=== PATIENT | female | born 1955 | race Caucasian/White ===

== ENCOUNTER 2022-03-13 15:33 | Outpatient (CLI) | payer MEDICARE, SELFPAY ==
--- NOTE | 2022-03-13 15:45 | CRLHL7_ITS ---
For Patients: As a result of the Century Cures Act, medical imaging exams and procedure reports are released immediately into your electronic medical record. You may view this report before your referring provider. If you have questions, please contact your health care provider. BILATERAL MAMMOGRAM WITH COMPUTER-AIDED DETECTION AND TOMOSYNTHESIS TECHNIQUE: CC and MLO views were obtained. These mammographic images have been obtained using full-field digital technique. These mammographic images were interpreted with the benefit of computer-aided detection. Breast Tomosynthesis was used in this interpretation. COMPARISON FILM: 03/02/2021, 06/13/2018. FINDINGS: The breasts are heterogeneously dense, which may obscure small masses IMPRESSION: There is no radiographic evidence for malignancy. ASSESSMENT: BI-RADS Category 1: Negative RECOMMENDATION: Routine screening mammogram in 1 year. A lay language report of this examination will be provided to the patient. Jagjit Leon M.D. Diagnostic Radiologist [email or web address] JAMIE/[email or web address] adrian/Dictated by: Jagjit Leon MD @ 03/14/2022 9:01:00 AM (Electronically Signed)
== END 2022-03-13 15:34 | disposition home or self-care (01) ==
LOC: MAMMO 15:36
PROVIDERS: PCP Family Medicine; Visit Provider Family Medicine
DX: Z12.31 Encounter for screening mammogram for malignant neoplasm of breast (principal); R92.2 Inconclusive mammogram
CPT/HCPCS: 77063; 77067

== ENCOUNTER 2022-04-11 10:52 | Outpatient (CLI) | payer MEDICARE, SELFPAY ==
--- NOTE | 2022-04-11 11:00 | CRLHL7_ITS ---
For Patients: As a result of the Century Cures Act, medical imaging exams and procedure reports are released immediately into your electronic medical record. You may view this report before your referring provider. If you have questions, please contact your health care provider. Indication: LLQ palpable lump. hx left breast CA Technique: Grayscale and color Doppler ultrasound of the left lower quadrant abdominal wall performed. Comparison: None Findings: Targeted sonogram to the left lower quadrant abdominal wall performed. In this location there is a circumscribed area of hyperechoic/isoechoic echotexture measuring 1.2 x 0.7 x 1.1 cm. This is located just beneath the epidermis. No abnormal vascularity. No shadowing. Impression: Benign-appearing lesion within the subcutaneous fat of the left lower quadrant measuring 1.2 cm compatible with either lipoma or subcutaneous bruise. Dictated by Jagjit Leon MD @ 04/11/2022 11:46:07 AM (Electronically Signed)
== END 2022-04-11 10:53 | disposition home or self-care (01) ==
LOC: US 10:55
PROVIDERS: PCP Family Medicine; Visit Provider Internal Medicine Hematology & Oncology
DX: R19.04 Left lower quadrant abdominal swelling, mass and lump (principal); C50.912 Malignant neoplasm of unspecified site of left female breast
CPT/HCPCS: 76705

== ENCOUNTER 2022-04-25 10:03 | Outpatient (CLI) | payer MEDICARE, SELFPAY ==
--- NOTE | 2022-04-25 10:15 | CRLHL7_ITS ---
For Patients: As a result of the Century Cures Act, medical imaging exams and procedure reports are released immediately into your electronic medical record. You may view this report before your referring provider. If you have questions, please contact your health care provider. CLINICAL HISTORY: Benign endometrial hyperplasia TECHNIQUE: Real time, curiel scale images were acquired of the pelvis using a transabdominal and transvaginal approach. Color Doppler analysis was performed of the ovaries. FINDINGS: The uterus measures 7.4 x 5.4 x 7.7 centimeters. Endometrium measures 9 millimeters. Superior portion the endometrium appears heterogeneous in appearance. Myomatous uterus Larger fibroid is a right fundal fibroid measuring 5.3 x 4.4 x 5.2 centimeters. Left fundal fibroid measuring 3.1 by 2.2 x 2.7 centimeters apparent right lower uterine segment fibroid measuring 2.6 x 1.9 x 2.5 Centimeters Left ovary is unremarkable measuring 2.2 x 1.2 x 1.4 centimeters right ovary is unremarkable measuring 2.1 x 1.3 x 1.5 centimeters. IMPRESSION: 1. 9 millimeter endometrium. Superior aspect of the endometrium is slightly heterogeneous appearance patient did have endometrial biopsy. 2. Myomatous uterus. Dictated by Sylvie Hobbs MD @ 04/26/2022 6:03:05 AM (Electronically Signed)
== END 2022-04-25 10:04 | disposition home or self-care (01) ==
LOC: US 10:04
PROVIDERS: PCP Family Medicine; Visit Provider Obstetrics & Gynecology
DX: N85.01 Benign endometrial hyperplasia (principal); D25.9 Leiomyoma of uterus, unspecified
CPT/HCPCS: 76830; 76856

== ENCOUNTER 2022-05-01 09:46 | Outpatient (RCR) | payer MEDICARE, SELFPAY ==
--- OUTSIDE RECORDS SUMMARY | 2022-02-16 09:11 | XMS_ITS | Continuity of Care Document ---
:1955 Author Care Team Providers Name Role Phone MD Danyel Nick Attending Physician Unavailable MD Shelia Perez Primary Care Physician Allergies, Adverse Reactions, Alerts Allergen Type Severity Reaction Last Updated Verified Status No Known Drug Allergy Unknown September Yes Active Allergy 2021 JUNG Allergy Unknown RASH April 06, No Active SILVER 2020 Social History Smoking Status Status Start Date End Date Date of Observat ion Never smoked tobacco October 162021 (finding) 10:52am Observation Status Observation Response Date of Response Non-smoker February 23, 2021 1:38p m Does not drink alcohol February 23, 2021 1: 38pm Exercises regularly February 23, 2021 1:38p m , 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, 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, 2 kids, lives in [place] Additional Data Assigned Sex Female Problems Active Problems Medical Problem Onset Date Status lump 9 0 clock 2 3 cm left breast January, Active Post-menopausal bleeding Dec, 2020 Resolved Hx of nonmelanoma skin cancer 2005 Active Pelvic prolapse Active Hypothyroid Active Elevated blood pressure reading February, Resolved Breast cancer, left breast February, Active Encounter for screening for Active COVID-19 Hx of excision of epidermal Active inclusion cyst Hx of local excision of skin 2006 Active lesion History of lumpectomy of left April 18, 2021 Active breast H/O dilation and curettage April 06, 2021 Active Inactive/Resolved Problems Medical Problem Onset Date Status Hx excision of sessile serrated Resolved adenoma colon polyp Medications Medication Status Dose Units Route Directions Qty Days Start End Ins tructions Date Date Anastrozole Active 1 MG PO Daily 90 90 November (Arimidex) 1 2nd, Mg TAB 2020 2:58pm Calcium/Mikayla Active 1 TAB PO Daily 200 100 November min D 2nd, (Calcium 2020 Carbonate/Vi 2:59pm tamin D) 600 Mg/400 Unit TAB Ibuprofen Active 200-4 MG PO Every 6 100 00 Hours as needed Acetaminophe Discontin 1-2 TAB PO Every March Septem n/Hydrocodon ued Hours as e Bitart needed 2020 08, (Hydrocodone 9:09am 2020 -Acetaminoph 1:08pm en) 5 Mg/325 Mg TAB No Discontin Septembe Septem Medications ued r 2020, 1:08pm 2020 2:43pm Immunizations Immunization Event Date Not Given Dose Cloth Mercerizer Operator Lot Vac cine Reason Number Number Informatio n Statement (VIS) Deta il COVID-19 Pfizer December 202020 COVID-19 Pfizer January 102020 COVID-19 Pfizer June 282020 Tetanus/Diptheri April 20, a 2004 Tdap April 14 (adolescent/adul 2004 t) Advance Directives Advance Directive Response Recorded Date/Time Has patient completed a No October 16, 022 10:52am Health Care Directive? Insurance Providers Guarantor Olga Nelson Address [address] [place] [address] Contact Info. Home Phone: Payer Policy Id Coverage Id Subscriber's Subscriber Id Effective E xpiration Name Date Date Medicare [id number] Olga Nelson 11 J Encounters Encounter Location(s) Arrival/Admit Date Discharge/Depart Date Provider(s) Registered [place] January 24, 2022 [facility] 9:45am Idris NICOLAS Plan of Treatment Future Tests Future scheduled test information is unavailable Pending Tests Pending diagnostic test information is unavailable Future Visits Future appointment information is unavailable Referrals to Other Providers Referral information is unavailable Future Procedures Procedure Name Scheduled Date OTTONIEL Bilat Mammo Scrn Future Medications Future medication information is unavailable Patient Instructions Patient instructions are unavailable
--- OUTSIDE RECORDS SUMMARY | 2022-02-23 10:28 | XMS_ITS | Continuity of Care Document ---
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 Insurance Providers Guarantor Olga Nelson Address [address] [place] [address] Contact Info. Home Phone: Payer Policy Id Coverage Id Subscriber's Subscriber Id Effective E xpiration Name Date Date Medicare [id number] Olga Nelson 11 J Encounters Encounter Location(s) Arrival/Admit Date Discharge/Depart Date Provider(s) Registered [place] January 24, 2022 [facility] 9:45am Idris NICOLAS Plan of Treatment [...]
== END 2022-05-01 11:39 | disposition home or self-care (01) ==
PROVIDERS: PCP Family Medicine; Visit Provider Surgery
DX: I89.0 Lymphedema, not elsewhere classified (principal); Z51.89 Encounter for other specified aftercare
CPT/HCPCS: 97535

== ENCOUNTER 2022-05-29 11:38 | Outpatient (CLI) | payer MEDICARE, SELFPAY ==
--- OUTSIDE RECORDS SUMMARY | 2022-05-29 11:42 | XMS_ITS ---
:1955 Author Organization [facility] Address [address] [place] [address] Care Team Providers Name Role Phone Unavailable Primary Care Provider Unavailable Active Problems Problem Noted Date Malignant Neoplasm Of Breast Upper Inner Quadrant Fema le Left 05/18/2021 Cancer Staging: Pathologic stage from : Stage IIA (pT2, pN1mi(sn), cM0, G3, ER+, GA+, HER2-, Oncotype DX score: 8) - Unsigned Current Oncology Plans No current plan information found. Past Plans No past plan information found. Radiation Treatments Plan Last Treated Elapsed Days Fractions Prescribed Prescribed Total On Treated Fraction Dose Dose [id number] 06/22/2021 24 4 of 4 250 cGy 1,000 cGy [id number] 06/16/2021 18 15 of 15 267 cGy 4,005 cGy Reference Point Last Treated On Elapsed Days Session Dose Total Dos e [id number] 06/22/2021 24 250 cGy 5,005 cGy
--- OUTSIDE RECORDS SUMMARY | 2022-05-29 11:42 | XMS_ITS | Encounter Summary ---
:1955 Author Organization [facility] Address [address] [place] [address] Care Team Providers Name Role Phone Unavailable Primary Care Provider Unavailable Encounter Details Date Type Department Care Team Description 06/22/2021 Documentation Department of Radiation Ary Romero I., Oncology in [place] [address] [address] [facility] [address] [place] [phone] (Wo rk) Social History Tobacco Use Types Packs/Day Years Used Date Smoking Tobacco: Never Assessed Sex Assigned at Date Recorded Not on file documented as of this encounter Miscellaneous Notes Radiation Completion Notes - Park Kilpatrick R.N. - 06/22/2021 11:59 PM CDT DIAGNOSIS: 1. Malignant Neoplasm Of Breast Upper Inner Quadrant Female Left (HCC) - stage IIA left breast cancer. She is currently undergoing whole breast radiotherapy that will be followed by a boost to the lumpectomy cavity. ?? Attending Physician: Ary Romero M.D. Treatment Intent: Curative Concomitant Therapy: None Single Plan Treatment Course: 1x LT BREAST Plan ID Fractions Dose / Fraction (cGy) Dose Treated (cGy) Dose Planned (cGy) First Treatment Last Treatment Elapsed Days [id number] 267 4005 4005 05/29/2021 06/16/2021 18 [id number] 250 1000 1000 06/19/2021 06/22/2021 3 Treatment Site Summary 5005 5005 05/29/2021 06/22/2021 24 Course Summary 05/29/2021 06/22/2021 24 Radiation Modality: Photons CLINICAL SUMMARY Lane Nelson completed radiation treatment as planned without interruptions. The course of treatment was tolerated well. The patient experienced toxicities of grade 2 radiation dermatitis for which she will begin dressing changes during radiation treatment. TREATMENT RESPONSE: Response to treatment will be determined by post-treatment imaging and/or laboratory work. RECOMMENDED FOLLOW UP: Primary Medical Oncologist. She has a follow-up visit with Dr. Membreno on June 27, 2021. We will not schedule for their formal follow-up in Radiation Oncology Clinic Signed by: Park Kilpatrick R.N., 06/27/2021 10:06 AM CDT [facility] [address] [place] [address] documented in this encounter Plan of Treatment Not on filedocumented as of this encounter Visit Diagnoses Not on filedocumented in this encounter
--- OUTSIDE RECORDS SUMMARY | 2022-05-29 11:43 | XMS_ITS | Encounter Summary ---
:1955 Author Organization [facility] Address [address] [place] [address] Care Team Providers Name Role Phone Unavailable Primary Care Provider Unavailable Encounter Details Date Type Department Care Team Description 06/14/2021 Hospital Encounter Department of Radiation Doc Romero I., Oncology in [place] [address] [facility] [address] [place] [phone] Social History Tobacco Use Types Packs/Day Years Used Date Smoking Tobacco: Never Assessed Sex Assigned at Date Recorded Not on file documented as of this encounter Plan of Treatment Not on filedocumented as of this encounter Visit Diagnoses Not on filedocumented in this encounter
--- OUTSIDE RECORDS SUMMARY | 2022-05-29 11:43 | XMS_ITS | Encounter Summary ---
:1955 Author Organization [facility] Address [address] [place] [address] Care Team Providers Name Role Phone Unavailable Primary Care Provider Unavailable Encounter Details Date Type Department Care Team Description 05/30/2021 Hospital Encounter Department of Radiation Doc Romero I., Oncology in [place] [address] [facility] [address] [place] [address] [phone] Social History Tobacco Use Types Packs/Day Years Used Date Smoking Tobacco: Never Assessed Sex Assigned at Date Recorded Not on file documented as of this encounter Plan of Treatment Not on filedocumented as of this encounter Visit Diagnoses Not on filedocumented in this encounter
--- OUTSIDE RECORDS SUMMARY | 2022-05-29 11:43 | XMS_ITS | Clinical Summary ---
:1955 Author Organization [facility] [place] [address] Care Team Providers Name Role Phone Blair Zimmer Primary Care Provider Unavailable Allergies Not on File Medications Not on file Active Problems Not on file Encounters Date Type Specialty Care Team Description 04/25/2022 Lab Requisition Jannie Estrella MD from Last 3 Months Social History Tobacco Use Types Packs/Day Years Used Date Never Assessed Sex Assigned at Date Recorded Not on file Plan of Treatment Health Maintenance Due Date Last Done Comments Tdap 1964 Depression screening for age 12+ 1965 BMI (ht and wt on same day) for age 18+ 1971 Hepatitis C screening for age 18-79 1971 Tetanus booster 1973 Colonoscopy through age 75 1998 Lipids for age 45-75 1998 Mammogram for age 45-75 1998 Zoster (shingles) series for age 50+ (1 of 2003 2) DEXA/DXA scan for age 65+ 2018 Pneumococcal series for age 65+ (1 - PCV) 2018 COVID-19 vaccine series (3 - Booster for 03/07/2021 021, 12/20/2020 Pfizer series) Influenza for age 65+ 04/26/2022 Procedures Procedure Name Priority Date/Time Associated Diagnosis Comme nts LAB TRACKING EVENT Routine 04/25/2022 9:45 AM CDT PATH TISSUE EXAM Routine 04/25/2022 9:45 AM Resul ts for this CDT procedure are i n the results section. from Last 3 Months Results LAB TRACKING EVENT (04/25/2022 9:45 AM CDT) Specimen Anatomical Collection Method Collection Time Receive d Time (Source) Location / / Volume Laterality Other (Other) Client Collect / 04/25/2022 9:45 AM 03/28 8:22 Unknown CDT PM CDT Jannie Estrella MD LAB BILL ONLY Performing Organization Address City/State/ZIP Code Phon e Number [facility] [address] [place] [address] LABORATORY-CENTRAL 2000 LABORATORY PATH TISSUE EXAM (04/25/2022 9:45 AM CDT) Component Value Ref Test Analysis Performed At [facility] gist Range Method Time Signature Case Report Pathology Report ?Case: [id number] ? 04/26/2022 [facility] Authorizing Provider: ??Jannie Estrella MD ?? Collected: ? 04/25/2022 0945 ? 10:02 AM LABORAT ORY-CE Ordering Location: ? [facility] ?Received: ?04/25/20222046 ? CDT [facility] Pathologist: ? Shaunna Altman MD ? LABORATORY Specimen: ?Endometrial B iopsy ? Final A) ENDOMETRIUM, BIOPSY: 04/26/2022 [employer] Electronically Diagnosis 1. Atrophic endometrium 10:02 AM LABORA TORY-CE signed by Anupama, 2. Negative for hyperplasia, atypia, and malignancy in this sample CDT [facility] Shaunna Nance LABORATORY on 04/26 at 10:01 A M Comment If the 04/26/2022 [facility] clinical 10:02 AM LABORATORY-CE impression CDT [facility] does not LABORATORY correlate with the histologic finding of endometrial atrophy, further endometrial tissue sampling is recommended as clinically indicated. Clinical Complex 04/26/2022 [facility] Information hyperplasia 10:02 AM LABORATORY-CE without atypia CDT [facility] and fragments LABORATORY of endometrial polyp ([id number]; 04/06/21). Gross A) Received in formalin, lab eled with the patient's name and endometrial biopsy, is a 0.7 x 0.5 cm aggregate of blood tinged mucous. The specimen is entirely submitted in 1 cassette. 04/26/2022 [facility] Description 10:02 AM LABORATORY-CE SSS 04/25/2022 CDT [facility] LABORATORY Microscopic The final 04/26/2022 [employer] diagnosis is 10:02 AM LABORATORY-CE based on CDT [facility] microscopic LABORATORY examination of appropriate sections of all specimens. Additional 04/26/2022 [facility] Information Interpreted at [facility], Central Laboratory - [address], [place] [address] 10:02 AM LABORATORY-CE CDT [facility] LABORATORY Specimen Anatomical Collection Method Collection Time Receive d Time (Source) Location / / Volume Laterality Other 04/25/2022 9:45 AM 2 8:47 (Endometrial CDT PM CDT Biopsy) Jannie Estrella MD PATHOLOGY/CYTOLOGY Performing Organization Address City/State/ZIP Code Phon e Number [facility] [address] [place] [address] LABORATORY-CENTRAL 2000 LABORATORY from Last 3 Months Insurance Payer Benefit Plan / Subscriber ID Effective Dates Phone Addre ss Type Group MEDICARE PART A MEDICARE PART A [id number] 2018-Present ATTN: CLAIMS - HB USE ONLY HB ONLY [address] [place] [address] MEDICARE PART B MEDICARE PART B [id number] 2018-Present ATTN: CLAIMS - HB USE ONLY HB ONLY [address] [place] [address] [phone] [address] [facility] y 3 (Home) [facility] [place] [id number] Care Teams Reinforcing Metal Worker Relationship Specialty Start Date End Date Blair Zimmer PCP - General 03/17/21
--- OUTSIDE RECORDS SUMMARY | 2022-05-29 11:43 | XMS_ITS | Encounter Summary ---
:1955 Author Organization [facility] Address [address] [place] [address] Care Team Providers Name Role Phone Yashira Gonzalez APRN, CNP Primary Care Provider Encounter Details Date Type Department Care Team Description 06/13/2018 Lab Visit [facility] Lipid screening; [address] Screening for endocrine, nut ritional, metabolic and immunity disorder; [place] [address] Screening for deficiency ane joyce [phone] Social History Tobacco Use Types Packs/Day Years Used Date Smoking Tobacco: Never Smokeless Tobacco: Never Alcohol Use Standard Drinks/Week Comments No 0 (1 standard drink = 0.6 oz pure alcoho l) Sex Assigned at Date Recorded Not on file documented as of this encounter Progress Notes Yashira Gonzalez - 06/13/2018 5:11 PM CDT See telephone encounter. JAMILAH Altman CNP 06/13/2018 5:11 PM Yashira Gonzalez - 06/13/2018 4:38 PM CDT See telephone encounter. JAMILAH Altman CNP 06/13/2018 4:37 PM documented in this encounter Plan of Treatment Not on filedocumented as of this encounter Procedures Procedure Name Priority Date/Time Associated Diagnosis Comme nts LIPID PANEL AND Routine 06/13/2018 11:09 AM Lipid screening Re sults for this DIRECT LDL(IF CDT procedure are in NEEDED) the results section. BASIC METABOLIC Routine 06/13/2018 11:09 AM Screening for Resu lts for this PANEL CDT endocrine, procedure are i n nutritional, the results metabolic and section. immunity disorder COMPLETE BLOOD Routine 06/13/2018 11:09 AM Screening for Resul ts for this COUNT-NO DIFF CDT deficiency anemia procedure are in the results section. FREE T4 Routine 06/13/2018 11:09 AM Results for this CDT procedure are i n the results section. TSH, SENSITIVE Routine 06/13/2018 11:09 AM Screening for Resul ts for this (WITH REFLEX) CDT endocrine, procedure are in nutritional, the results metabolic and section. immunity disorder documented in this encounter Results Free T4 (06/13/2018 11:09 AM CDT) P athologist Signature T4, Free 0.9 0.7 - 1.5 [facility] ng/dl Specimen Anatomical Collection Method Collection Time Receive d Time (Source) Location / / Volume Laterality 06/13/2018 11:09 06/13/2018 AM CDT 11:20 AM CDT Narrative [facility] - 06/13/2018 5:08 PM C DT Performed at [facility], [address] [place] [address] ??[phone] Yashira Gonzalez APRN, CNP LAB_1 Performing Organization Address [facility]/ZIP Code Phon e Number [facility] [phone] (ABNORMAL) TSH, SENSITIVE with FT4, FT3 (if needed) (06/13/2018 11:09 AM CDT) Patholo gist Method Time Signature TSH, with 0.03 (L) 0.30 - [facility] Reflex 4.50 [facility] uIU/ml Specimen Anatomical Collection Method Collection Time Receive d Time (Source) Location / / Volume Laterality 06/13/2018 11:09 06/13/2018 AM CDT 11:20 AM CDT Narrative [facility] - 06/13/2018 4:22 PM C DT Performed at [facility], [address] [place] [address] ??[phone] Yashira Gonzalez APRN, CNP LAB_1 Performing Organization Address City/[facility]/ZIP [facility] Phon e Number [facility] [phone] (ABNORMAL) Complete Blood Count-No Diff (06/13/2018 11:09 AM CDT) P athologist Signature WBC 5.9 4.0 - 11.0 [facility] k/ul [facility] RBC 5.21 (H) 4.0 - 5.2 [facility] M/ul [facility] Hemoglobin 15.2 12.0 - [facility] 16.0 g/dl [facility] HCT 44.8 36.0 - [facility] 46.0 % [facility] MCV 86.0 80 - 100 [facility] fl [facility] MCH 29.2 26 - 34 pg [facility] MCHC 33.9 32 - 36 [facility] g/dl [facility] RDW 12.5 11.5 - [facility] 14.5 % [facility] Platelets 221 150 - 450 [facility] k/ul [facility] Specimen Anatomical Collection Method Collection Time Receive d Time (Source) Location / / Volume Laterality 06/13/2018 11:09 06/13/2018 AM CDT 11:20 AM CDT Narrative [facility] - 06/13/2018 1:16 PM C DT Performed at [facility], [address] [place] [address] ??[phone] Yashira Gonzalez APRN, CNP LAB_1 Performing Organization Address City/State/ZIP Code Phon e Number [facility] [phone] Basic Metabolic Panel (06/13/2018 11:09 AM CDT) Analysis Performed At Patho logist Time Signature Sodium 144 136 - 145 [facility] mmol/L [facility] Potassium 3.6 3.5 - 5.1 [facility] mmol/L [facility] Chloride 108 98 - 109 [facility] mmol/L [facility] CO2 25 20 - 29 [facility] mmol/L [facility] Anion Gap 11 7 - 16 [facility] (calc.) mmol/L [facility] Glucose 91 70 - 180 [facility] mg/dl [facility] Calcium 9.6 8.4 - 10.4 [facility] mg/dl [facility] BUN 11 7 - 26 [facility] mg/dl [facility] Creatinine 0.69 0.55 - [facility] 1.02 mg/dl [facility] GFR, Estimated >60 >60 [facility] ml/min/1.7 [facility] 3m2 GFR, Est., If >60 >60 [facility] Black ml/min/1.7 [facility] 3m2 Specimen Anatomical Collection Method Collection Time Receive d Time (Source) Location / / Volume Laterality 06/13/2018 11:09 06/13/2018 AM CDT 11:20 AM CDT Narrative [facility] - 06/13/2018 4:14 PM C DT Performed at [facility], [address] [place] [address] ??[phone] Yashira Gonzalez APRN, CNP LAB_1 Performing Organization Address [facility] Phon e Number [facility] [phone] Lipid Panel and Direct LDL(If Needed) (06/13/2018 11:09 AM CDT) [facility] gist Method Time Signature Hours Fasting 12 hours [facility] Cholesterol 192 0 - 199 [facility] mg/dl [facility] Triglyceride 137 0 - 149 [facility] mg/dl [facility] HDL 45 >40 mg/dl [facility] LDL, Calc. 120 0 - 129 [facility] mg/dl [facility] Non HDL Chol, 147 0 - 159 [facility] Calc mg/dl [facility] Specimen Anatomical Collection Method Collection Time Receive d Time (Source) Location / / Volume Laterality 06/13/2018 11:09 06/13/2018 AM CDT 11:20 AM CDT Narrative [facility] - 06/13/2018 4:14 PM C DT Performed at [facility], [address] [place] [address] ??[phone] Yashira Gonzalez APRN, CNP LAB_1 Performing Organization Address [facility] Phon e Number [facility] [phone] documented in this encounter Visit Diagnoses Diagnosis Lipid screening Screening for lipoid disorders Screening for endocrine, nutritional, me tabolic and immunity disorder Screening for other and unspecified endo crine, nutritional, metabolic, and immunity disorders Screening for deficiency anemia Screening for other and unspecified defi ciency anemia documented in this encounter Care Teams Barge Pilot Relationship Specialty Start Date End Date Yashira Gonzalez APRN, CNP PCP - General Nurse Practitioner 05/30/[address] [place] [address] documented as of this encounter
--- OUTSIDE RECORDS SUMMARY | 2022-05-29 11:43 | XMS_ITS | Encounter Summary ---
:1955 Author Organization [facility] Address [address] [place] [address] Care Team Providers Name Role Phone Yashira Gonzalez APRN, NISHANT Primary Care Provider [phone] Reason for Visit Reason Comments Medicare Encounter Details Date Type Department Care Team Description 06/17/2018 Telephone [facility] bradley Yashira Gonzalez, ODESSA, Medicare [address] CAREER COUNSELOR [place], [place] [id number] [address] [phone] [place], [place] [address] (Wo rk) Social History Tobacco Use Types Packs/Day Years Used Date Smoking Tobacco: Never Smokeless Tobacco: Never Alcohol Use Standard Drinks/Week Comments No 0 (1 standard drink = 0.6 oz pure alcoho l) Sex Assigned at Date Recorded Not on file documented as of this encounter Nursing Notes Hector Cantrell CMA - 06/17/2018 12:59 PM CDT Spoke with pt and she states that she went to [facility] in [place] for her eye exam. Clinic will fax over eye exam today. Hector Cantrell CMA 06/17/2018, 12:59 PM documented in this encounter Plan of Treatment Not on filedocumented as of this encounter Visit Diagnoses Not on filedocumented in this encounter Care Teams Anesthesia Attending Relationship Specialty Start Date End Date Yashira Gonzalez APRN, CAREER COUNSELOR PCP - General Nurse Practitioner 05/30/[address] [place] [address] documented as of this encounter
--- OUTSIDE RECORDS SUMMARY | 2022-05-29 11:43 | XMS_ITS | Encounter Summary ---
:1955 Author Organization [facility] Address [address] [place] [address] Care Team Providers Name Role Phone Unavailable Primary Care Provider Unavailable Encounter Details Date Type Department Care Team Description 05/31/2021 Hospital Encounter Department of Radiation Doc Romero I., Oncology in [place] [address] [facility] [address] [place] [phone] Social History Tobacco Use Types Packs/Day Years Used Date Smoking Tobacco: Never Assessed Sex Assigned at Date Recorded Not on file documented as of this encounter Plan of Treatment Not on filedocumented as of this encounter Visit Diagnoses Not on filedocumented in this encounter
--- OUTSIDE RECORDS SUMMARY | 2022-05-29 11:43 | XMS_ITS | Encounter Summary ---
:1955 Author Organization [facility] Address [address] [place] [address] Care Team Providers Name Role Phone Unavailable Primary Care Provider Unavailable Reason for Referral Radiation Therapy (Routine) - Closed Specialty Diagnoses / Procedures Referred By Contact Refer red To Contact Diagnoses Malignant Neoplasm Of Upper Inner Quadrant Of Female Breast Laterality Unknown (HCC) Ary Romero M.D. 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 [facility] Procedures Management Visit [address] [place] [phone] Referral ID Status Reason Start Date Expiration Date Visits Requ ested Visits Authorized [id number] Closed 05/18/2021 05/18/2022 10 10 Encounter Details Date Type Department Care Team Description 06/13/2021 Hospital Encounter Department of Jesus Dietz Neoplasm Radiation Oncology Karo Bell [facility] in [place], [address] [facility] Quadrant Of Female [place], [place] Breast Laterality [address] [facility] [phone] Unknown (HCC) [place], [place] [phone] (Work) [phone] Social History Tobacco Use Types Packs/Day Years Used Date Smoking Tobacco: Never Assessed Sex Assigned at Date Recorded Not on file documented as of this encounter Progress Notes Jesus Dietz M.D. - 06/13/2021 1:45 PM CDT SUBJECTIVE REASON FOR VISIT Evaluation for side effects while receiving radiation treatment for 1. Malignant Neoplasm Of Breast Upper Inner Quadrant Female Left (HCC) HISTORY OF PRESENT ILLNESS Lane Nelson is a 66 y.o. female with stage IIA left breast cancer. She is currently undergoing whole breast radiotherapy that will be followed by a boost to the lumpectomy cavity. Treatment Course: 1x LT BREAST Plan ID Fractions Dose / Fraction (cGy) Dose Treated (cGy) Dose Planned (cGy) First Treatment Last Treatment Elapsed Days [id number] 05/29/2021 06/13/2021 Course Summary 05/29/2021 06/13/2021 The patient reports that she is currently feeling well. She denies any breast pain or discomfort. She is utilizing topical moisturizing cream on her left breast twice a day. He has noticed some pruritus medial aspect of her upper chest. PATIENT REPORTED SYMPTOM SCREEN FATIGUE (Scale: 0 = no fatigue; 10 = worst fatigue you can imagine): 0 PAIN (Scale: 0 = no pain; 10 = worst pain you can imagine): 0 OVERALL QUALITY OF LIFE (Scale: 0 = as bad as can be; 10 = as good as can be): 10 OBJECTIVE There were no vitals taken for this visit. PHYSICAL EXAM General: Alert and oriented in no apparent distress. She was examined at the treatment room with thechaperone of the therapist, MANISHA Christensen. Skin: There is faint erythema and mild folliculitis in the medial upper aspect of the left breast. No other areas of skin redness and no desquamation. ASSESSMENT / PLAN #1 Stage IIA (pT2, pN1mi(sn), cM0, G3, ER+, CT+, HER2-, Oncotype DX score: 8) invasive ductal carcinoma of the left breast The patient is tolerating radiation treatment well. She has grade 1 dermatitis in her upper medial left breast. She will begin applying either topical hydrocortisone and or Benadryl cream. If the skin does breakdown, she knows that she should begin applying topical Aquaphor. She will continue with radiation treatment as planned. Signed by: Jesus Dietz M.D. 06/13/21 1:33 PM CDT [facility] [address] [place] [address] documented in this encounter Plan of Treatment Scheduled Orders Name Type Priority Associated Diagnoses Order S chedule Management Visit Radiation Oncology Routine Malignant Neoplasm Once for 1 Of Upper Inner Occurrences s tarting Quadrant Of Female 1 until Breast Laterality 06/13/2021 Unknown (HCC) documented as of this encounter Visit Diagnoses Diagnosis Malignant Neoplasm Of Upper Inner Quadra nt Of Female Breast Laterality Unknown (HCC) documented in this encounter
--- OUTSIDE RECORDS SUMMARY | 2022-05-29 11:43 | XMS_ITS | Encounter Summary ---
:1955 Author Organization [facility] Address [address] [place] [address] Care Team Providers Name Role Phone Unavailable Primary Care Provider Unavailable Encounter Details Date Type Department Care Team Description 06/07/2021 Hospital Encounter Department of Radiation Doc Romero I., Oncology in [place] [address] [facility] [address] [place] [phone] Social History Tobacco Use Types Packs/Day Years Used Date Smoking Tobacco: Never Assessed Sex Assigned at Date Recorded Not on file documented as of this encounter Plan of Treatment Not on filedocumented as of this encounter Visit Diagnoses Not on filedocumented in this encounter
--- OUTSIDE RECORDS SUMMARY | 2022-05-29 11:43 | XMS_ITS | Encounter Summary ---
:1955 Author Organization [facility] Address [address] [place] [address] Care Team Providers Name Role Phone Unavailable Primary Care Provider Unavailable Reason for Referral Outpatient (Routine) - Closed Specialty Diagnoses / Procedures Referred By Contact Refer red To Contact Radiation Oncology Ary Romero [facility] Hilario Slaughter M.D. [address] [place] [address] Referral ID Status Reason Start Date Expiration Date Visits Requ ested Visits Authorized [id number] Closed 05/18/2021 05/18/2022 10 10 Specialty Diagnoses / Procedures Referred By Contact Refer red To Contact Ary Romero M.D. 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 [facility] Procedures Prior Auth Rad Tx [address] [place] [address] Referral ID Status Reason Start Date Expiration Date Visits Requ ested Visits Authorized [id number] Closed 05/18/2021 05/18/2022 1 1 Encounter Details Date Type Department Care Team Description 05/18/2021 Orders Only Department of Ary Romero N eoplasm Of Radiation Oncology in [place] Upper Inner Quadrant [facility] a [address] [facility] Of Female Breast [address] [place], [place] [address] (HCC) (Primary Dx) [phone] Social History Tobacco Use Types Packs/Day Years Used Date Smoking Tobacco: Never Assessed Sex Assigned at Date Recorded Not on file documented as of this encounter Plan of Treatment Scheduled Orders Name Type Priority Associated Order Schedule Diagnoses Prior Auth Rad Tx Radiation Oncology Routine Malignant Neoplas m Ordered: 05/18/2021 Of Upper Inner Quadrant Of Female Breast Laterality Unknown (HCC) Management Visit Radiation Oncology Routine Malignant Neoplasm 10 Occurrences Of Upper Inner starting 04/27 Quadrant Of Female until Breast Laterality Unknown (HCC) Scheduled Referrals Name Type Priority Associated Order Schedule Diagnoses Radiation Oncology Outpatient Referral Routine Malignant Neopl asm Expected: 05/18/2021 - Nurse education Of Upper Inner (Approxi mate), visit (clinic) Quadrant Of Female Expires : 05/18/2022 Breast Laterality Unknown (HCC) Radiation Oncology Outpatient Referral Routine 10 Occurrences nurse visit starting 2020 (clinic) until 4 documented as of this encounter Results Initial Rad Onc Treatment Planning CT Simulation (05/19/2021 1:30 PM CDT) Specimen (Source) Anatomical Location Collection Method / Collectio n Time Received Time / Laterality Volume Narrative NOMI QUINTANA - 05/19/2021 1:30 PM CDT [place] [facility] RTT ? 05/19/2021 ??1:30 PM Initial Rad Onc Treatment Planning CT Si mulation Date/Time: 05/19/2021 1:30 PM Performed by: Ary Romero M.D. Authorized by: Ary Romero M.D. Ary Romero M.D. RADIATION ONCOLOGY ORDERABLE S Performing Organization Address City/State/ZIP Code Phon e Number [place] documented in this encounter Visit Diagnoses Diagnosis Malignant Neoplasm Of Upper Inner Quadra nt Of Female Breast Laterality Unknown (HCC) - Primary Malignant Neoplasm Of Upper Inner Quadra nt Of Female Breast Laterality Unknown (HCC) documented in this encounter
--- OUTSIDE RECORDS SUMMARY | 2022-05-29 11:43 | XMS_ITS | Encounter Summary ---
:1955 Author Organization [facility] Address [address] [place] [address] Care Team Providers Name Role Phone Yashira Gonzalez APRN, CNP Primary Care Provider [phone] Reason for Referral Procedure/Equipment (Routine) - Closed Specialty Diagnoses / Procedures Referred By Contact Refer red To Contact Diagnoses Screen for colon cancer Yashira Gonzalez APRN, CNP [address] [place] [address] Referral ID Status Reason Start Date Expiration Date Visits Requ ested Visits Authorized [id number] Closed 06/13/2018 09/12/2019 1 1 Scheduling Instructions Your provider has recommended an appoint ment for a screening colonoscopy with [facility] . You may call the [facility] at [phone] to schedule your colonoscopy. Screening colonoscopies are performed at [facility] in [place], as well as at [facility]. We suggest you call your health insurance company a bout your coverage and benefits for this appointment. Reason for Visit Reason Comments Medicare Annual Wellness Encounter Details Date Type Department Care Team Description 06/13/2018 Office Visit [facility] Yashira Gonzalez Encounte r for Medicare annual wellness exam (Primary Dx); Practice [facility] Screening for endocrine, nutritional, me tabolic and immunity disorder; [address] Screening for deficiency anemia; [place] [address] [place], [place] Lipid screening; [phone] [address] Post-menopausal; [phone] Screen for colo n cancer (Work) Social History Tobacco Use Types Packs/Day Years Used Date Smoking Tobacco: Never Smokeless Tobacco: Never Alcohol Use Standard Drinks/Week Comments No 0 (1 standard drink = 0.6 oz pure alcoho l) Sex Assigned at Date Recorded Not on file documented as of this encounter Last Filed Vital Signs Vital Sign Reading Time Taken Comments Blood Pressure 134/86 06/13/2018 12:11 PM CDT Pulse 70 06/13/2018 10:34 AM CDT Temperature - - Respiratory Rate 20 06/13/2018 10:31 AM CDT Oxygen Saturation 100% 06/13/2018 10:31 AM CDT Inhaled Oxygen Concentration - - Weight 59 kg (130 lb) 06/13/2018 10:31 AM CDT Height 154.9 cm (5' 1) 06/13/2018 10:31 AM CDT Body Mass Index 24.56 06/13/2018 10:31 AM CDT documented in this encounter Patient Instructions Patient InstructionsStHector yanez, STREET INSPECTOR - 06/13/2018 10:32 AM CDT Annual Wellness Visit Summary Your care team is recommending the following tests, procedures or services. Some of these recommendations may not be fully covered by Medicare or your insurance. If you have questions, check with your insurance to determine coverage before completing these services. Health Maintenance Due Health Maintenance Topic Date Due ??? Hep C Screening (Preventive Services) 1955 ??? Medicare Welcome Visit 1955 ??? Colon Cancer Screening Plan Due 1955 ??? Pap 1974 ??? Cholesterol 1998 ??? Mammogram 2003 ??? Zoster RZV (Shingrix) (1 of 2 - RZV 2 Dose Standard Series) 2003 ??? DTaP/Tdap/Td (2 - Td) 04/14/2015 ??? Advanced Directive 2018 ??? Dexa 2018 ??? Pneumococcal (1 of 2 - PCV13) 2018 ??? Influenza (1) 04/26/2018 If your Medicare Welcome or Annual Wellness Visit is showing you are due in the above list, this will be updated after this visit. You had this completed today and are not due for another year. documented in this encounter Progress Notes Yashira Gonzalez X - 06/13/2018 10:32 AM CDT Subjective/Historical Lane Nelson is a 63 y.o. old female for Medicare Annual Wellness. Pt states she has not been seen for > 10 Years. Needs Health Maintenance updated Chief Complaint Patient presents with ??? Medicare Annual Wellness Current Concerns: Has concerns with racing heart rate. Denies feeling SOB. States she just sits for awhile and symptoms resolve. This has happened a couple times over the last year. Typically occurs when she is active. Has never noticed this symptoms when she is resting. Mini-Cog Assessment Word Recall: 2 Clock Draw: 2 Total: 4 Additional Assessments Completed: PHQ-2 was administered today with a total score of: 0 Has a Health Care Directive on file? no. Pertinent Positives from Medicare Wellness Form: MEDICARE ANNUAL WELLNESS CONCERNS 06/13/2018 How many servings of fruits and vegetables do you eat a day? 2 to 4 The patient's health maintenance, problem list, past medical history, past surgical history, family history, medication list, allergies, and immunization records have been reviewed and updated in the patient record as necessary. Observed Vitals: BP 134/86 Pulse 70 Resp 20 Ht 5' 1 (1.549 m) Wt 130 lb (59 kg) SpO2 100% BMI 24.56 kg/m2 Vision check done RT eye 20/20, LT eye 20/20. Correction used? no General Appearances: Pleasant, alert, appropriate appearance for age. No acute distress. Head Exam: Normal. Normocephalic, atrumatic. Eye Exam: Normal external eye, conjunctiva, lids Ear Exam: Normal TMs bilaterally. Normal auditory canals and external ears. Nontender. Nose Exam: Normal external nose; no deviation of septum; normal turbinates and mucosa. Oropharynx Exam: Dental hygiene adequate. Normal buccal mucosa. Normal pharynx. Neck Exam: Supple, no masses or nodes. Thyroid Exam: No nodules or enlargement. Chest/Respiratory Exam: Normal chest wall and respirations. Clear to auscultation. Breasts: normal without suspicious masses, skin or nipple changes or axillary nodes, symmetric fibrous changes in both upper outer quadrants, self-exam is taught and encouraged. Cardiovascular Exam: Regular rate and rhythm. S1, S2, no murmur, click, gallop, or rubs. Gastrointestinal Exam: Soft, non-tender, no masses or organomegaly. Genitourinary Exam: Female: pt refused Lymphatic Exam: Non-palpable nodes in neck, clavicular, axillary regions. Musculoskeletal Exam: Back is straight and non-tender, FROM of upper and lower extremities. Foot Exam: Left and right foot: good pedal pulses Skin: No rash or abnormalities. Neurologic Exam: Nonfocal, normal gross motor, tone coordination and no tremor. Psychiatric Exam: Behavior: normal; Speech: Normal; Thought content: Normal; Affect: Normal. Assessment/Plan (Z00.00) Encounter for Medicare annual wellness exam (primary encounter diagnosis) Plan: Counseling and education provided today includes proper nutrition and health habits, fall prevention, and for those items ordered above. Plan for future preventive services in Patient Instructions. (Z13.29, Z13.21, Z13.228, Z13.0) Screening for endocrine, nutritional, metabolic and immunity disorder Plan: Basic Metabolic Panel, TSH, SENSITIVE with FT4, FT3 (if needed) Will notify pt with result (Z13.0) Screening for deficiency anemia Plan: Complete Blood Count-No Diff Will notify pt with result (Z13.220) Lipid screening Plan: Lipid Panel and Direct LDL(If Needed) Will notify pt with result (Z78.0) Post-menopausal Plan: DEXA Bone Density Spine/Hip Pt set up an appointment. Will be going to [place] soon and return in November. Will schedule it then. (Z12.11) Screen for colon cancer Plan: Colonoscopy-Preventative Pt set up an appointment. Will be going to [place] soon and return in November. Will schedule it then. Yashira Gonzalez APRN, NISHANT 06/13/2018, 12:11 PM documented in this encounter Plan of Treatment Scheduled Referrals Name Type Priority Associated Diagnoses Order S chedule Colonoscopy-Preventativ Referral Routine Screen for colon cancer Ordered: 06/13/2018 e documented as of this encounter Results (ABNORMAL) TSH, SENSITIVE with FT4, FT3 (if needed) (06/13/2018 11:09 AM CDT) Patholo gist Method Time Signature TSH, with 0.03 (L) 0.30 - [facility] uIU/ml Specimen Anatomical Collection Method Collection Time Receive d Time (Source) Location / / Volume Laterality 06/13/2018 11:09 06/13/2018 AM CDT 11:20 AM CDT Narrative [facility] - 06/13/2018 4:22 PM C DT Performed at [facility], [address] [place] [address] ??[id number] Yashira Gonzalez APRN, CNP LAB_1 Performing Organization Address City/[facility]/ZIP Code Phon e Number [facility] [phone] (ABNORMAL) Complete Blood Count-No Diff (06/13/2018 11:09 [...] AM CDT Narrative [facility] - 06/13/2018 1:16 PM C DT Performed at [facility], [address] [place] [address] ??[id number] Yashira Gonzalez APRN, CNP LAB_1 Performing Organization Address City/[facility]/ZIP Code Phon e Number [facility] [phone] Basic Metabolic Panel (06/13/2018 11:09 AM CDT) [...] 06/13/2018 4:14 PM C DT Performed at [address] ??[id number] Yashira Gonzalez APRN, CNP LAB_1 Performing Organization Address City/[facility] Phon e Number [facility] [phone] Lipid Panel and Direct LDL(If Needed) (06/13/2018 11:09 AM CDT) [facility] Method Time Signature Hours Fasting 12 hours [...] 06/13/2018 4:14 PM C DT Performed at [facility], [address] [place] [address] ??[id number] Yashira Gonzalez APRN, CNP LAB_1 Performing Organization Address [facility]/ZIP Code Phon e Number [facility] [phone] documented in this encounter Visit Diagnoses Diagnosis Encounter for Medicare annual wellness e xam - Primary Screening for endocrine, nutritional, me tabolic and immunity disorder Screening for other and unspecified endo crine, nutritional, metabolic, and immunity disorders Screening for deficiency anemia Screening for other and unspecified defi ciency anemia Lipid screening Screening for lipoid disorders Post-menopausal Asymptomatic postmenopausal status (age- related) (natural) Screen for colon cancer Special screening for malignant neoplasm s, colon Lipid screening Screening for lipoid disorders Screening for endocrine, nutritional, me tabolic and immunity disorder Screening for other and unspecified endo crine, nutritional, metabolic, and immunity disorders Screening for deficiency anemia Screening for other and unspecified defi ciency anemia documented in this encounter Care Teams Cherry Picker Operator Relationship Specialty Start Date End Date Yashira Gonzalez APRN, DISTRICT MANAGER IN TRAINING PCP - General Nurse Practitioner 05/30/18 [address] [place] [address] documented as of this encounter
--- OUTSIDE RECORDS SUMMARY | 2022-05-29 11:43 | XMS_ITS | Encounter Summary ---
:1955 Author Organization [facility] Address [address] [place] [address] Care Team Providers Name Role Phone Unavailable Primary Care Provider Unavailable Encounter Details Date Type Department Care Team Description 06/01/2021 Hospital Encounter Department of Radiation Doc Romero I., Oncology in [place] Tammy [place] [address] [facility] [address] [place] [address] [phone] Social History Tobacco Use Types Packs/Day Years Used Date Smoking Tobacco: Never Assessed Sex Assigned at Date Recorded Not on file documented as of this encounter Plan of Treatment Not on filedocumented as of this encounter Visit Diagnoses Not on filedocumented in this encounter
--- OUTSIDE RECORDS SUMMARY | 2022-05-29 11:43 | XMS_ITS | Encounter Summary ---
:1955 Author Organization [facility] Address [address] [place] [address] Care Team Providers Name Role Phone Unavailable Primary Care Provider Unavailable Encounter Details Date Type Department Care Team Description 06/08/2021 Hospital Encounter Department of Radiation Doc Romero I., Oncology in [place] Tammy [place] [address] [facility] [address] [place] [address] [phone] Social History Tobacco Use Types Packs/Day Years Used Date Smoking Tobacco: Never Assessed Sex Assigned at Date Recorded Not on file documented as of this encounter Plan of Treatment Not on filedocumented as of this encounter Visit Diagnoses Not on filedocumented in this encounter
--- OUTSIDE RECORDS SUMMARY | 2022-05-29 11:43 | XMS_ITS | Encounter Summary ---
:1955 Author Organization [facility] Address [address] [place] [address] Care Team Providers Name Role Phone Unavailable Primary Care Provider Unavailable Encounter Details Date Type Department Care Team Description 06/22/2021 Hospital Encounter Department of Radiation Doc Romero I., Oncology in [place] [address] [facility] [address] [place] [address] [phone] Social History Tobacco Use Types Packs/Day Years Used Date Smoking Tobacco: Never Assessed Sex Assigned at Date Recorded Not on file documented as of this encounter Plan of Treatment Not on filedocumented as of this encounter Visit Diagnoses Not on filedocumented in this encounter
--- OUTSIDE RECORDS SUMMARY | 2022-05-29 11:43 | XMS_ITS | Encounter Summary ---
:1955 Author Organization [facility] Address [address] [place] [address] Care Team Providers Name Role Phone Unavailable Primary Care Provider Unavailable Encounter Details Date Type Department Care Team Description 06/05/2021 Hospital Encounter Department of Radiation Doc Romero I., Oncology in [place] Tammy [place] [address] [facility] [address] [place] [address] [phone] Social History Tobacco Use Types Packs/Day Years Used Date Smoking Tobacco: Never Assessed Sex Assigned at Date Recorded Not on file documented as of this encounter Plan of Treatment Not on filedocumented as of this encounter Visit Diagnoses Not on filedocumented in this encounter
--- OUTSIDE RECORDS SUMMARY | 2022-05-29 11:43 | XMS_ITS | Encounter Summary ---
:1955 Author Organization [facility] Address [address] [place] [address] Care Team Providers Name Role Phone Unavailable Primary Care Provider Unavailable Encounter Details Date Type Department Care Team Description 06/13/2021 Hospital Encounter Department of Radiation Doc Romero I., Oncology in [place] Tammy [place] [address] [facility] [address] [place] [address] [phone] Social History Tobacco Use Types Packs/Day Years Used Date Smoking Tobacco: Never Assessed Sex Assigned at Date Recorded Not on file documented as of this encounter Plan of Treatment Not on filedocumented as of this encounter Visit Diagnoses Not on filedocumented in this encounter
--- OUTSIDE RECORDS SUMMARY | 2022-05-29 11:43 | XMS_ITS | Encounter Summary ---
:1955 Author Organization [facility] Address [address] [place] [address] Care Team Providers Name Role Phone Yashira Gonzalez APRN, NISHANT Primary Care Provider [phone] Reason for Visit Reason Comments LAB RESULTS Encounter Details Date Type Department Care Team Description 06/13/2018 Telephone [facility] Yashira Gonzalez APRN, LAB RESULTS [address] [place] [address] [phone] [place], [place] [address] (Wo rk) Social History Tobacco Use Types Packs/Day Years Used Date Smoking Tobacco: Never Smokeless Tobacco: Never Alcohol Use Standard Drinks/Week Comments No 0 (1 standard drink = 0.6 oz pure alcoho l) Sex Assigned at Date Recorded Not on file documented as of this encounter Nursing Notes Dawn Monge CMA - 06/17/2018 10:52 AM CDT Pt informed and agreed w/ plan. Dawn Monge CMA - 06/16/2018 4:38 PM CDT Left message to call back. ashira Delaney X - 06/16/2018 4:20 PM CDT Okay to wait. Repeat when she returns JAMILAH Altman CNP 06/16/2018 4:21 PM Alyssa Olivas RN - 06/16/2018 2:32 PM CDT Patient updated per Yashira Gonzalez's message below. Patient states she is leaving for [place] in one week and does not come back to [place] until the end of November. Would like PCP to advise if she needs to have level checked while she is there or if she can wait 6 months. Please advise and route back to RN as patient is expecting call back. Alyssa Olivas RN 06/16/2018, 2:33 PM Audrey Beckford - 06/16/2018 2:29 PM CDT Patient calling back, requesting to hold for Nurse. Elizabeth Thomas RN - 06/16/2018 12:49 PM CDT Left message to return call. Elizabeth Thomas RN 06/16/2018, 12:49 PM Yashira Gonzalez - 06/13/2018 4:39 PM CDT Please call. TSH is low. Normal Free T4. Repeat TSH in 6 weeks Lipid panel is normal. BMP showed normal electrolytes and kidney function. CBC showed normal immune function with hemoglobin level. JAMILAH Altman CNP 06/13/2018 5:12 PM documented in this encounter Plan of Treatment Not on filedocumented as of this encounter Visit Diagnoses Diagnosis Decreased thyroid stimulating hormone (T SH) level - Primary documented in this encounter Care Teams Webbing Supervisor Relationship Specialty Start Date End Date Cachuela, Yashira, RETAIL MANAGER, GUN FERTILIZER PCP - General Nurse Practitioner 05/30/18 [address] [place] [address] documented as of this encounter
--- OUTSIDE RECORDS SUMMARY | 2022-05-29 11:43 | XMS_ITS | Encounter Summary ---
:1955 Author Organization [facility] Address [address] [place] [address] Care Team Providers Name Role Phone Unavailable Primary Care Provider Unavailable Encounter Details Date Type Department Care Team Description 06/02/2021 Hospital Encounter Department of Radiation Doc Romero I., Oncology in [place] Tammy [place] [address] [facility] [address] [place] [address] [phone] Social History Tobacco Use Types Packs/Day Years Used Date Smoking Tobacco: Never Assessed Sex Assigned at Date Recorded Not on file documented as of this encounter Plan of Treatment Not on filedocumented as of this encounter Visit Diagnoses Not on filedocumented in this encounter
--- OUTSIDE RECORDS SUMMARY | 2022-05-29 11:43 | XMS_ITS | Encounter Summary ---
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 [facility] Procedures Initial Rad Onc Treatment Planning CT Simulation [address] [place], [place] [address] Referral ID Status Reason Start Date Expiration Date Visits Requ ested Visits Authorized [id number] Closed 05/18/2021 05/18/2022 1 1 Encounter Details Date Type Department Care Team Description 05/19/2021 Hospital Encounter Department of Ary Romero Neoplasm Radiation Oncology [facility]o [facility] in [place] [address] [address] [facility] [place], [place] Breast Laterality [address] [address] Unknown (HCC) [place], [place] [phone] (Work) [phone] Social History Tobacco Use Types Packs/Day Years Used Date Smoking Tobacco: Never Assessed Sex Assigned at Date Recorded Not on file documented as of this encounter Procedure Notes [place] RTT - 05/19/2021 1:00 PM CDTAssociated Order(s): Initial Rad Onc Treatment Planning CT Simulation Pre-Procedure Diagnose(s): 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 Authorized by: Ary Romero M.D. Simulation was performed under physician supervision based on physician order in preparation for radiation therapy. Physician was immediately available to provide assistance and direction throughout the procedure. Written consent for treatment was completed or confirmed. The patient was appropriately identified and placed in the treatment position using the necessary immobilization to ensure a reproducible treatment position. Reference sanz were placed to facilitate marking of isocenter. Area scanned:Chest Contrast used for the simulation procedure: None Patient position:head first supine and arms up Custom immobilization: Vac-emerita Motion management: Breath hold scan Bolus: No CT guidance: Following positioning of the patient, a series of slices was obtained to be utilized intreatment planning. CT images were transferred to the [employer] treatment planning system, after a reference isocenter was determined and marked. Segmentation and treatment planning will take place priorto treatment delivery. Patient set up and imaging was appropriate and completed without incident. Diving Board Assembler use:No documented in this encounter Plan of Treatment Not on filedocumented as of this encounter Procedures Procedure Name Priority Date/Time Associated Comments Diagnosis INITIAL RAD ONC Routine 05/19/2021 1:30 PM Malignant Neoplasm Results for this TREATMENT PLANNING CDT Of Upper Inner procedu re are in CT SIMULATION Quadrant Of Female the resu lts Breast Laterality section. Unknown (HCC) documented in this encounter Results Initial Rad Onc Treatment [...] Organization Address City/State/ZIP Code Phon e Number [facility] na documented in this encounter Visit Diagnoses Diagnosis Malignant Neoplasm Of Upper Inner Quadra nt Of Female Breast Laterality Unknown (HCC) documented in this encounter
--- OUTSIDE RECORDS SUMMARY | 2022-05-29 11:43 | XMS_ITS | Clinical Summary ---
:1955 Author Organization [facility] Address [address] [place] [address] Care Team Providers Name Role Phone Yashira Gonzalez APRN, CNP Primary Care Provider [phone] Source Comments You are receiving this document as you are listed as the primary care provider,follow-up provider, or the patient has been referred to you for consultation.This is in compliance with the Medicare and Medicaid EHR Incentive Program,which states Providers who transition their patient to another setting of careor provider of care or refers their patient to another provider of care shouldprovide summarycare record for each transition of care or referral. [employer] Allergies No known active allergies Medications No known medications Immunizations Name Administration Dates Next Due Tdap 04/14/2005 Family History Medical History Relation Name Comments Cancer, Breast Negative Family History Cancer, Ovary Negative Family History Social History Tobacco Use Types Packs/Day Years Used Date Smoking Tobacco: Never Smokeless Tobacco: Never Alcohol Use Standard Drinks/Week Comments No 0 (1 standard drink = 0.6 oz pure alcoho l) Sex Assigned at Date Recorded Not on file Last Filed Vital Signs Vital Sign Reading [...] Mass Index 24.56 06/13/2018 10:31 AM CDT Plan of Treatment Health Maintenance Due Date Last Done Comments Colon Cancer Screening Plan Due 1955 Hep C Screening (Preventive 1955 Services) COVID-19 Vaccine (#1) 1955 Zoster/Shingles (1 of 2) 2003 DTaP/Tdap/Td (2 - Tdap) 04/14/2015 04/14/2005 Dexa 2018 Pneumococcal 65+ Yrs (1 - PCV) 2018 Mammogram 06/13/2019 06/13/2018 Medicare Annual Wellness Visit 06/13/2019 06/13/2018 Influenza (#1) 2022 Cholesterol 06/13/2023 06/13/2018 HepA Aged Out No longer eligib le based on patient's age to complete this topic HepB Aged Out No longer eligib le based on patient's age to complete this topic Hib Aged Out No longer eligib le based on patient's age to complete this topic IPV (Polio) Aged Out No longer eligib le based on patient's age to complete this topic MCV4 Aged Out No longer eligib le based on patient's age to complete this topic Care Teams Manager Brand Relationship Specialty Start Date End Date Yashira Gonzalez, CHAINSAW MECHANIC, GLASS CUTTER HAND PCP - General Nurse Practitioner 05/30/[address] [place] [address]
--- OUTSIDE RECORDS SUMMARY | 2022-05-29 11:43 | XMS_ITS | Encounter Summary ---
:1955 Author Organization [facility] Address [address] [place] [address] Care Team Providers Name Role Phone Unavailable Primary Care Provider Unavailable Encounter Details Date Type Department Care Team Description 06/09/2021 Hospital Encounter Department of Radiation Doc Romero I., Oncology in [place] Tammy [place] [address] [facility] [address] [place] [phone] Social History Tobacco Use Types Packs/Day Years Used Date Smoking Tobacco: Never Assessed Sex Assigned at Date Recorded Not on file documented as of this encounter Plan of Treatment Not on filedocumented as of this encounter Visit Diagnoses Not on filedocumented in this encounter
--- OUTSIDE RECORDS SUMMARY | 2022-05-29 11:43 | XMS_ITS | Encounter Summary ---
:1955 Author Organization [facility] Address [address] [place] [address] Care Team Providers Name Role Phone Unavailable Primary Care Provider Unavailable Encounter Details Date Type Department Care Team Description 06/20/2021 Hospital Encounter Department of Radiation Doc Romero I., Oncology in [place] Tammy [place] [address] [facility] [address] [place] [address] [phone] Social History Tobacco Use Types Packs/Day Years Used Date Smoking Tobacco: Never Assessed Sex Assigned at Date Recorded Not on file documented as of this encounter Plan of Treatment Not on filedocumented as of this encounter Visit Diagnoses Not on filedocumented in this encounter
--- OUTSIDE RECORDS SUMMARY | 2022-05-29 11:43 | XMS_ITS | Encounter Summary ---
:1955 Author Organization [facility] Address [address] [place] [address] Care Team Providers Name Role Phone Unavailable Primary Care Provider Unavailable Encounter Details Date Type Department Care Team Description 06/06/2021 Hospital Encounter Department of Radiation Doc Romero I., Oncology in [place] Tammy [place] [address] [facility] [address] [place] [address] [phone] Social History Tobacco Use Types Packs/Day Years Used Date Smoking Tobacco: Never Assessed Sex Assigned at Date Recorded Not on file documented as of this encounter Plan of Treatment Not on filedocumented as of this encounter Visit Diagnoses Not on filedocumented in this encounter
--- OUTSIDE RECORDS SUMMARY | 2022-05-29 11:43 | XMS_ITS | Encounter Summary ---
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 [facility] Procedures Management Visit [address] [place] [phone] Referral ID Status Reason Start Date Expiration Date Visits Requ ested Visits Authorized [id number] Closed 05/18/2021 05/18/2022 10 10 Encounter Details Date Type Department Care Team Description 06/21/2021 Hospital Encounter Department of Jesus Dietz Neoplasm Radiation Oncology Karo [facility], [address] [facility] Quadrant Of Female [place], [place] Breast Laterality [address] [facility] [id number] Unknown (HCC) [place], [place] [phone] (Work) [phone] Social History Tobacco Use Types Packs/Day Years Used Date Smoking Tobacco: Never Assessed Sex Assigned at Date Recorded Not on file documented as of this encounter Last Filed Vital Signs Vital Sign Reading Time Taken Comments Blood Pressure - - Pulse - - Temperature 36.9 ??C (98.4 ??F) 06/21/2021 9:27 AM CDT Respiratory Rate - - Oxygen Saturation - - Inhaled Oxygen Concentration - - Weight 59.5 kg (131 lb 2.8 oz) 06/21/2021 9:27 AM CDT Height - - Body Mass Index - - documented in this encounter Progress Notes Jesus Dietz M.D. - 06/21/2021 9:30 AM CDT SUBJECTIVE SUPERVISED BY: Dr. Dietz REASON FOR VISIT Evaluation for side effects [...] [id number] 05/29/2021 06/16/2021 18 [id number] 06/19/2021 06/21/2021 2 Treatment Site Summary [id number] 05/29/2021 06/21/2021 23 Course Summary 05/29/2021 06/21/2021 23 Her oncologic history was reviewed with the patient and her and is as follows: 1. February 23, 2021: ??The patient presented for a physical examination. ??Her last physical had been approximately 13 years ago. ??She reported a lump on her left breast that she noticed approximately 1 month prior. ??She also reported 1 week of postmenopausal bleeding that occurred on weekend. ??Physical examination of the left breast demonstrated 2-3 cm smooth lump at the 9 o'clock position approximately 4 cm from the nipple. ??No lymphadenopathy. ??Pelvic examination was normal aside from urinary bladder prolapse. ??Mammogram was ordered. ??Pelvic ultrasound and QUALITY ASSURANCE AUDITOR consultation wasordered. 2. March 02, 2021: ??Bilateral diagnostic mammogram demonstrated in the area of palpable concern therewas a solid mass within the far medial left breast. ??Normal right breast mammogram. ??No adenopathy. ??Targeted left breast ultrasound performed at the 9 o'clock position, 8 cm from the nipple, demonst rated a spiculated hypoechoic taller than wide distal acoustic shadowing mass measuring 1.2 x 1.3 x 1.1 cm. ??BI-RADS 5. 3. March 02, 2021: ??Ultrasound of the pelvis demonstrated a diffusely thickened and cystic endometrium measuring up to 2.3 cm. ??Multiple uterine leiomyomas measuring up to 5.3 cm. 4. March 08, 2021: ??Ultrasound-guided biopsy of the suspicious mass in the left breast at the 9 o'clock position, 8 cm from the nipple was performed. ??Pathology demonstrated invasive ductal carcinoma,Ferney grade 2. ??Angiolymphatic invasion was absent. ??Associated DCIS was absent. ??Estrogen receptor positive (99%). ??Progesterone receptor positive (90%). ??HER2 by IHC negative (1+) 5. March 13, 2021: ??MRI of the bilateral breasts demonstrated in the right breast near the 9 o'clockposition, approximately 5.5 cm posterior to the nipple, middle depth, was non mass enhancement measuring 1.2 x 1.0 x 1.1 cm. ??No other suspicious mass or suspicious enhancement. ??In the left breast near the 9 o???clock paramediastinal position, far posteriorly, was signal void of a biopsy clip. ??There was an associated 1.3 x 1.1 cm mass. ??This was located just beneath the skin and there was overlying mild skin thickening and minimal dimpling. ??No skin enhancement to suggest invasion. ??No othersuspicious mass or suspicious enhancement. ??No lymphadenopathy. ??BI-RADS 4. ?? 6. March 14, 2021: ??Surgery consultation with Dr. Idris Templeton where physical examination of left breast at the 9 o'clock position near the sternum demonstrated a fixed mass that measured approximately 1.5 cm. ??The mass appeared to be attached to the underlying tissues. ??There was no axillary l ymphadenopathy bilaterally. ??There are no palpable masses of the right breast. ??Surgical treatmentoptions were discussed and they decided to schedule left breast lumpectomy with left sentinel lymph node biopsy. 7. March 27, 2021: ??MRI guided biopsy of the right breast at the 9 o'clock position, 4 cm from the nipple was performed. ??Pathology demonstrated proliferative fibrocystic change including small fragments of a radial scar (complex sclerosing lesion) measuring up to 0.4 cm. ??Incidental fragment of fib roadenoma measuring 0.15 cm. ??Negative for atypia and malignancy. ?? 8. April 06, 2021: ??Dilatation and curettage, hysteroscopy, truclear polypectomy was performed by Dr. Shahbaz Miller. ??Operative findings included a normal-appearing uterine contour, large endometrial polyp with thickened anterior wall of endometrial cavity. ??Pathology demonstrated complex hyperpl beny without atypia in fragments of endometrial polyps. ??Background proliferative endometrium. ??Negative for malignancy. ??Endocervical curettage demonstrated scant fragments of benign endocervical tissue. ??Negative for glandular neoplasia, squamous intraepithelial lesion, and malignancy. 9. April 18, 2021: ??Left breast lumpectomy and left sentinel lymph node biopsy and wire localized excisional biopsy of the right breast radial scar was performed by Dr. Templeton. ??Pathology of the right breast excisional biopsy demonstrated nodular proliferative fibrocystic change, negative for atypia or malignancy. ??Pathology of the left breast demonstrated invasive ductal carcinoma invading intothe dermis, measuring 2.4 cm, Yue grade 3. ??Ductal carcinoma in situ was present, cribriform, grade 3. ??Invasive carcinoma was located less than 0.1 cm to the lateral margin (at the level of th e deep dermis). ??DCIS was located greater than 5 mm from the closest posterior margin. ??Estrogen receptor positive (99%). ??Progesterone receptor positive (90%). ??HER2 by IHC negative (1+). ??Positive for malignancy in one left axillary sentinel lymph node, measuring 0.19 cm, extracapsular extension was absent (1/2). ??pT2 pN1mi 10. April 26, 2021: ??Medical Oncology consultation with Dr. Latonya Membreno who ordered Oncotype DX Recurrence Score testing. ??She recommended radiation therapy and 5-10 years of antiestrogen therapy +/- chemotherapy depending on Oncotype results. 11. April 27, 2021: ??Women's health appointment with Dr. Jannie Estrella who discussed that the patient is a candidate for hysterectomy. ??She offered total vaginal hysterectomy with bilateral salpingooophorectomy, but the patient was not yet ready to schedule. ??She also discussed endocrine therapy and treatment with Arimidex. 12. May 10, 2021: ??Oncotype DX Recurrence Score result was 8. ??No apparent benefit of chemotherapy. 13. May 29, 2021 anticipated through June 22, 2021: Patient treated with radiotherapy to the right breast to a dose of 4005 cGy in 15 fractions with a 1000 cGy boost to the left lumpectomy cavityin 4 fractions. Patient seen and evaluated today with Dr. Dietz. The patient reports that she is currently feeling well. She denies any breast pain or discomfort. She is utilizing topical moisturizing cream and honey. See has noticed some pruritus medial aspect of her upper chest that she manages with Benadryl ointment. PATIENT REPORTED SYMPTOM SCREEN FATIGUE (Scale: 0 = no fatigue; 10 = worst fatigue you can imagine): 0 PAIN (Scale: 0 = no pain; 10 = worst pain you can imagine): 0 OVERALL QUALITY OF LIFE (Scale: 0 = as bad as can be; 10 = as good as can be): great OBJECTIVE Temp 36.9 ??C (Temporal) Wt 59.5 kg PHYSICAL EXAM General: Alert and oriented in no apparent distress. Skin: Mild folliculitis, brisk erythema and minimal desquamation to the medial upper aspect of the left breast. ASSESSMENT / PLAN #1 Stage IIA (pT2, pN1mi(sn), cM0, G3, ER+, KY+, HER2-, Oncotype DX score: 8) invasive ductal carcinoma of the left breast #2 Radiotherapy to the left breast initiated on May 29, 2021; anticipated date of completion is on June 22, 2021 The patient is tolerating radiation treatment well. Skin changes should start to heal in 2-3 weeks. I reviewed Moist Skin Reaction [id number] pamphlet and provided her with samples of products today. I also reviewed Self Breast Examination [id number] pamphlet with patient today as well. Dr. Membreno will see patient in follow up next Saturday. We will not order formal follow up in Radiation Oncology Clinic at this time. Patient will contact us for any skin care questions or new concerns. She will continue with radiation treatment as planned. Patient stated a full understanding to the plan of care discussedtoday. Toxicities reviewed with Dr. Dietz today. Signed by: Criss Flores RN 06/21/21 12:50 PM CDT I saw and evaluated the patient and participated in the liao portions of the service. I reviewed the documentation of Criss Flores R.N. and agree with the findings and plan. The patient appears well onexam. She finishes treatment tomorrow. She is tolerating it well. 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 She will contact us with for skin issues worsen. She has a follow-up visit with Dr. Membreno on June 27, 2021. We will not schedule for their formal follow-up in Radiation Oncology Clinic, but she knows she can contact us at any time with questions or concerns. The patient verbalized satisfaction with this plan. Signed by: Jesus Dietz M.D. 06/21/2021 5:59 PM CDT [facility] [address] [place] [address] documented in this encounter Miscellaneous Notes Addendum Note - Josselin Colvin - 06/21/2021 9:30 AM CDT Encounter addended by: Josselin Colvin on: 06/23/2021 2:27 PM Actions taken: Letter saved documented in this encounter Plan of Treatment Scheduled Orders Name Type Priority Associated Diagnoses Order S chedule Management Visit Radiation Oncology Routine Malignant Neoplasm Once for 1 Of Upper Inner Occurrences s tarting Quadrant Of Female until Breast Laterality 06/21/2021 Unknown (HCC) documented as of this encounter Visit Diagnoses Diagnosis Malignant Neoplasm Of Upper Inner Quadra nt Of Female Breast Laterality Unknown (HCC) documented in this encounter
--- OUTSIDE RECORDS SUMMARY | 2022-05-29 11:43 | XMS_ITS | Encounter Summary ---
:1955 Author Organization [facility] Address [address] [place] [address] Care Team Providers Name Role Phone Yashira Gonzalez APRN, CNP Primary Care Provider [phone] Reason for Referral Procedure/Equipment (Routine) - Incomplete Specialty Diagnoses / Procedures Referred By Contact Refer red To Contact Procedures Yashira Gonzalez APRN, CNP MM Mammogram Screening Bilat [address] [place] [address] Referral ID Status Reason Start Date Expiration Date Visits V isits Requested Authorized [id number] Incomplete 06/13/2018 09/12/2019 1 1 Reason for Visit Procedure/Equipment (Routine) - Incomplete Specialty Diagnoses / Procedures Referred By Contact Refer red To Contact Procedures Yashira Gonzalez APRN, CNP MM Mammogram Screening Bil[address] [place] [address] Referral ID Status Reason Start Date Expiration Date Visits V isits Requested Authorized [id number] Incomplete 06/13/2018 09/12/2019 1 1 Encounter Details Date Type Department Care Team Description 06/13/2018 Imaging [facility] ury Mammography [address] [facility] [place], [place] [phone] Social History Tobacco Use Types Packs/Day Years Used Date Smoking Tobacco: Never Smokeless Tobacco: Never Alcohol Use Standard Drinks/Week Comments No 0 (1 standard drink = 0.6 oz pure alcoho l) Sex Assigned at Date Recorded Not on file documented as of this encounter Plan of Treatment Not on filedocumented as of this encounter Procedures Procedure Name Priority Date/Time Associated Diagnosis Comme nts MM MAMMOGRAM Routine 06/13/2018 11:17 AM Results for this SCREENING BILAT W CDT procedure are in CAD the results section. documented in this encounter Results MM Mammogram Screening Bilat W CAD (06/13/2018 11:17 AM CDT) Anatomical Region Laterality Modality Breast Bilateral Mammography Specimen (Source) Anatomical Location Collection Method / Collectio n Time Received Time / Laterality Volume Impressions 06/16/2018 3:22 PM CDT : ACR BI-RADS Category 1: Negative RECOMMENDATION: Follow Up Imaging in 12 months - Bilateral The results and recommendations of this examination will be communicated to the patient. Narrative 06/16/2018 3:22 PM CDT MM MAMMOGRAM SCREENING BILAT W CAD performed on 06/13/18 No comparisons were made when reading th is study. Baseline. FINDINGS: Bilateral screening mammogram was performed with the assistance of Computer-Aided Detection. The breasts are heterogeneously dense, which may obscure small masses. There is no radiographic evidence of mal ignancy. ?? Yashira Gonzalez APRN, CNP RAD [place] documented in this encounter Visit Diagnoses Not on filedocumented in this encounter Care Teams Field Irrigation Worker Relationship Specialty Start Date End Date Yashira Gonzalez APRN, CNP PCP - General Nurse Practitioner 05/30/18 [address] [place] [address] documented as of this encounter
--- OUTSIDE RECORDS SUMMARY | 2022-05-29 11:43 | XMS_ITS | Encounter Summary ---
:1955 Author Organization [facility] Address [address] [place] [address] Care Team Providers Name Role Phone Unavailable Primary Care Provider Unavailable Reason for Visit Appointment Request (Routine) - Closed Specialty Diagnoses / Procedures Referred By Contact Refer red To Contact Radiation Oncology Diagnoses Malignant Neoplasm Of Breast Female Left (HCC) Latonya Membreno M.D. [address] [place] [address] Referral ID Status Reason Start Date Expiration Date Visits Requ ested Visits Authorized [id number] Closed 05/11/2021 05/11/2022 1 1 Encounter Details Date Type Department Care Team Description 05/19/2021 Hospital Encounter Department of Ary Romero Neoplasm Radiation Oncology Karo Carr Of Breast Upper in [place], Formerly named [facility] [address] [place], [place] Female Left (HCC) [address] [facility] [id number] (Primary Dx) [place], [place] [phone] (Work) [phone] Social History Tobacco Use Types Packs/Day Years Used Date Smoking Tobacco: Never Assessed Sex Assigned at Date Recorded Not on file documented as of this encounter Last Filed Vital Signs Vital Sign Reading Time Taken Comments Blood Pressure 133/85 05/19/2021 10:53 AM CDT Pulse 73 05/19/2021 10:53 AM CDT Temperature 36.6 ??C (97.9 ??F) 05/19/2021 10:53 AM CDT Respiratory Rate - - Oxygen Saturation - - Inhaled Oxygen Concentration - - Weight 59.2 kg (130 lb 8.2 oz) 05/19/2021 10:53 AM CDT Height - - Body Mass Index - - documented in this encounter Consult Notes Ary Romero M.D. - 05/19/2021 11:00 AM CDT RADIATION ONCOLOGY CONSULTATION SUBJECTIVE REQUESTING PROVIDER Latonya Membreno M.D. PRIMARY PROVIDER Dr. Magdalena Perez REASON FOR CONSULT Asked to see patient by Dr. Membreno to render an opinion regarding radiation therapy options for her left sided breast cancer. HISTORY OF PRESENT ILLNESS #1 Left sided breast cancer, s/p lumpectomy and SLN biopsy Mrs. Jessica Nelson is a 66-year-old female with stage IIA (pT2, pN1mi(sn), cM0, G3, ER+, GA+, HER2-, Oncotype DX score: 8) invasive ductal carcinoma of the left breast, who presents today for an opinion regarding the role of radiation therapy in the management of the patient's disease. Her oncologic history was reviewed with the patient and her and is as follows: 1. February 23, 2021: The patient presented for a physical examination. Her last physical had been approximately 13 years ago. She reported a lump on her left breast that she noticed approximately 1 month prior. She also reported 1 week of postmenopausal bleeding that occurred on weekend. Physical examination of the left breast demonstrated 2-3 cm smooth lump at the 9 o'clock position approximately 4 cm from the nipple. No lymphadenopathy. Pelvic examination was normal aside from urinary bladder prolapse. Mammogram was ordered. Pelvic ultrasound and SHOWER ATTENDANT consultation was ordered. 2. March 02, 2021: Bilateral diagnostic mammogram demonstrated in the area of palpable concern there was a solid mass within the far medial left breast. Normal right breast mammogram. No adenopathy. Targeted left breast ultrasound performed at the 9 o'clock position, 8 cm from the nipple, demonstrated a spiculated hypoechoic taller than wide distal acoustic shadowing mass measuring 1.2 x 1.3 x 1.1 cm. BI-RADS 5. 3. March 02, 2021: Ultrasound of the pelvis demonstrated a diffusely thickened and cystic endometrium measuring up to 2.3 cm. Multiple uterine leiomyomas measuring up to 5.3 cm. 4. March 08, 2021: Ultrasound-guided biopsy of the suspicious mass in the left breast at the 9 o'clock position, 8 cm from the nipple was performed. Pathology demonstrated invasive ductal carcinoma, Yue grade 2. Angiolymphatic invasion was absent. Associated DCIS was absent. Estrogen receptor positive (99%). Progesterone receptor positive (90%). HER2 by IHC negative (1+) 5. March 13, 2021: MRI of the bilateral breasts demonstrated in the right breast near the 9 o'clock position, approximately 5.5 cm posterior to the nipple, middle depth, was non mass enhancement measuring 1.2 x 1.0 x 1.1 cm. No other suspicious mass or suspicious enhancement. In the left breast near the 9 o???clock paramediastinal position, far posteriorly, was signal void of a biopsy clip. There was an associated 1.3 x 1.1 cm mass. This was located just beneath the skin and there was overlying mild skin thickening and minimal dimpling. No skin enhancement to suggest invasion. No other suspicious mass or suspicious enhancement. No lymphadenopathy. BI-RADS 4. 6. March 14, 2021: Surgery consultation with Dr. Idris Templeton where physical examination of left breast at the 9 o'clock position near the sternum demonstrated a fixed mass that measured approximately 1.5 cm. The mass appeared to be attached to the underlying tissues. There was no axillary lymphadenopathy bilaterally. There are no palpable masses of the right breast. Surgical treatment options were discussed and they decided to schedule left breast lumpectomy with left sentinel lymph node biopsy. 7. March 27, 2021: MRI guided biopsy of the right breast at the 9 o'clock position, 4 cm from the nipple was performed. Pathology demonstrated proliferative fibrocystic change including small fragmentsof a radial scar (complex sclerosing lesion) measuring up to 0.4 cm. Incidental fragment of fibroadenoma measuring 0.15 cm. Negative for atypia and malignancy. 8. April 06, 2021: Dilatation and curettage, hysteroscopy, truclear polypectomy was performed by Dr. Shahbaz Miller. Operative findings included a normal- appearing uterine contour, large endometrial polyp with thickened anterior wall of endometrial cavity. Pathology demonstrated complex hyperplasia without atypia in fragments of endometrial polyps. Background proliferative endometrium. Negative formalignancy. Endocervical curettage demonstrated scant fragments of benign endocervical tissue. Negative for glandular neoplasia, squamous intraepithelial lesion, and malignancy. 9. April 18, 2021: Left breast lumpectomy and left sentinel lymph node biopsy and wire localized excisional biopsy of the right breast radial scar was performed by Dr. Templeton. Pathology of the right breast excisional biopsy demonstrated nodular proliferative fibrocystic change, negative for atypia or malignancy. Pathology of the left breast demonstrated invasive ductal carcinoma invading into the dermis, measuring 2.4 cm, [place] grade 3. Ductal carcinoma in situ was present, cribriform, grade 3. Invasive carcinoma was located less than 0.1 cm to the lateral margin (at the level of the deep dermis). DCIS was located greater than 5 mm from the closest posterior margin. Estrogen receptor positive (99%). Progesterone receptor positive (90%). HER2 by IHC negative (1+). Positive for malignancy inone left axillary sentinel lymph node, measuring 0.19 cm, extracapsular extension was absent (1/2). pT2 pN1mi 10. April 26, 2021: Medical Oncology consultation with Dr. Latonya Membreno who ordered Oncotype DXRecurrence Score testing. She recommended radiation therapy and 5-10 years of antiestrogen therapy +/- chemotherapy depending on Oncotype results. 11. April 27, 2021: Women's health appointment with Dr. Jannie Estrella who discussed that the patient is a candidate for hysterectomy. She offered total vaginal hysterectomy with bilateral salpingo oophorectomy, but the patient was not yet ready to schedule. She also discussed endocrine therapy and treatment with Arimidex. 12. May 10, 2021: Oncotype DX Recurrence Score result was 8. No apparent benefit of chemotherapy. INTERVAL HISTORY The patient reports that she is doing well. She has recovered from her surgeries. She denies headache, nausea/vomiting, chest pain, cough, fever/chills, abdominal pain, change in bowel/bladder functions or blood in urine or stool. She has had no further episodes of post-menopausal bleeding. Her weighthas been stable. She denies a history of prior radiation therapy or connective tissue disorders. Her ECOG performancestatus is 0. REVIEW OF SYSTEMS Review of systems was negative except as documented above. PATIENT REPORTED SYMPTOM SCREEN FATIGUE (Scale: 0 = no fatigue; 10 = worst fatigue you can imagine): 0 PAIN (Scale: 0 = no pain; 10 = worst pain you can imagine): 0 OVERALL QUALITY OF LIFE (Scale: 0 = as bad as can be; 10 = as good as can be): 9 PAST MEDICAL HISTORY 1. Nonmelanoma skin cancer 2. Pelvic prolapse 3. Hypothyroidism 4. Postmenopausal bleeding, as per HPI 5. Left breast cancer, as per HPI PAST SURGICAL HISTORY 1. Excision of epidermal inclusion cyst, sebaceous cyst x3 2. Excision of nonmelanoma skin cancer, back 3. Dilatation and curettage, hysteroscopy, truclear polypectomy, 2020 4. Left breast lumpectomy and left sentinel lymph node biopsy and wire localized excisional biopsy of the right breast radial scar, 2020 SOCIAL HISTORY She lives in [place], [place]. She is . She has 2 children and 4 grandchildren. She is a retireddental digital marketing assistant. She is a never smoker. She does not drink alcohol. FAMILY HISTORY Father had lung cancer (age 77). Brother had renal cancer and prostate cancer (ages 67 and 68). OBJECTIVE BP 133/85 (BP Location: Right arm, Patient Position: Sitting, Cuff Size: Regular) Pulse 73 Temp 36.6 ??C (Temporal) Wt 59.2 kg PHYSICAL EXAM General: Well-developed, well-nourished and in no apparent distress. Lymph: No palpable cervical, supraclavicular, infraclavicular, or axillary adenopathy. Spine: There is no tenderness to palpation of the spine. Lungs: Clear to auscultation bilaterally. Heart: Regular rate and rhythm. Extremities: No clubbing, cyanosis, or edema. Breasts: Examined in the sitting and supine positions. The right breast has an everted nipple with no palpable masses, no overlying skin changes, and no expressible nipple discharge. The left breast has an everted nipple with no palpable masses, no overlying skin changes besides her well healed incision on the medial aspect of her breast with associated healing ecchymosis and fibrosis, and no expressible nipple discharge. DIAGNOSTICS I have reviewed the available imaging, operative and pathology reports as described above. ASSESSMENT / PLAN #1 Stage IIA (pT2, pN1mi(sn), cM0, G3, ER+, GA+, HER2-, Oncotype DX score: 8) invasive ductal carcinoma of the left breast We discussed the findings above and below in this note with the patient and her very supportive . We discussed her microscopically involved lymph node. We discussed standard tangents vs. high tangents. I don't think we need to treat comprehensive steven bustillo in a post-menopausal female givenher other favorable characteristics (ER/GA positivity and low Oncotype DX score). I would favor whole breast radiotherapy with or without high tangents. We discussed various fractionation regimens. I would recommend standard hypofractionated regimen. The patient???s clinical and pathologic scenario was reviewed with the patient and her in detail. The rationale for radiotherapy was reviewed. The logistics of radiotherapy simulation were reviewed with the patient utilizing the simulation booklet. We discussed treatment planning and potentialstrategies for minimizing dose to critical structures. The logistics of radiotherapy treatment were reviewed with the patient. Treatments are administered daily Saturday through Saturday, with each treatment lasting approximately 10-20 minutes. Our team approach was reviewed with the patient. We discussed the rationale, risks, side effects and adjuvant goals of radiation therapy. We discussed the acute as well as staff consultant risks, including, but not limited to fatigue, skin erythema/desquamation, sore throat, fibrosis of the breast/chest wall, lymphedema, small risks of bone fracture, radiation pneumonitis, cardiac disease, brachial plexopathy and secondary malignancies. We discussed possibly utilizing a breath hold technique for treatment if this is better. They understood and their questions were answered. She wished to proceed with treatment. We tentatively plan on delivering [id number] cGy in 15-19 fractions starting May 29, 2021. My thanks to Jareth Cantu and Chris for the opportunity to participate in this patient's care. EDUCATION Ready to learn, no apparent learning barriers were identified; learning preferences include listening. Explained diagnosis and treatment plan; patient expressed understanding of the content. CONSENT Discussed the risks, benefits, alternatives, and the necessity of other members of the healthcare team participating in the procedure. All questions answered and consent given. I personally spent 60 minutes in care of the patient today. Time includes both non face to face and face to face patient care. Signed by: Ary Romero M.D. 05/19/2021 4:58 PM CDT Radiation Oncology [facility] [address] [place], [place] [id number] documented in this encounter Miscellaneous Notes Addendum Note - Josselin Colvin - 05/19/2021 11:00 AM CDT Encounter addended by: Josselin Colvin on: 05/22/2021 8:00 AM Actions taken: Letter saved documented in this encounter Plan of Treatment Not on filedocumented as of this encounter Visit Diagnoses Diagnosis Malignant Neoplasm Of Breast Upper Inner Quadrant Female Left (HCC) - Primary documented in this encounter
--- OUTSIDE RECORDS SUMMARY | 2022-05-29 11:43 | XMS_ITS | Encounter Summary ---
:1955 Author Organization [facility] Address [address] [place] [address] Care Team Providers Name Role Phone Unavailable Primary Care Provider Unavailable Encounter Details Date Type Department Care Team Description 05/29/2021 Hospital Encounter Department of Radiation Doc Romero I., Oncology in [place] [address] [facility] [address] [place] [id number] [phone] Social History Tobacco Use Types Packs/Day Years Used Date Smoking Tobacco: Never Assessed Sex Assigned at Date Recorded Not on file documented as of this encounter Plan of Treatment Not on filedocumented as of this encounter Visit Diagnoses Not on filedocumented in this encounter
--- OUTSIDE RECORDS SUMMARY | 2022-05-29 11:43 | XMS_ITS | Encounter Summary ---
:1955 Author Organization [facility] Address [address] [place] [address] Care Team Providers Name Role Phone Unavailable Primary Care Provider Unavailable Encounter Details Date Type Department Care Team Description 06/15/2021 Hospital Encounter Department of Radiation Doc Romero I., Oncology in [place] [address] [facility] [address] [place] [id number] [phone] Social History Tobacco Use Types Packs/Day Years Used Date Smoking Tobacco: Never Assessed Sex Assigned at Date Recorded Not on file documented as of this encounter Plan of Treatment Not on filedocumented as of this encounter Visit Diagnoses Not on filedocumented in this encounter
[2022-05-29 16:25] LABS: Albumin* 4.5 g/dL (3.3-5.0)
[2022-05-29 16:26] LABS: Chloride* 104 mmol/L (96-114); Potassium* 4.2 mmol/L (3.6-5.1); Sodium* 141 mmol/L (135-149)
[2022-05-29 16:28] LABS: Aspartate Amino Transferase* 26 U/L (12-35); Bilirubin Total* 2.3 mg/dL (0.1-1.5); Blood Urea Nitrogen* 15 mg/dL (7-30); Carbon Dioxide* 28 mmol/L (20-32); Cholesterol* 187 mg/dL (90-199); Creatinine* 0.6 mg/dL (0.5-1.5); Estimated Glomerular Filt Rate 97 ml/min; Total Protein* 6.9 g/dL (6.0-8.3)
[2022-05-29 16:29] LABS: Alanine Aminotransferase* 20 U/L (4-35); Alkaline Phosphatase* 105 U/L (40-150); Calcium* 10.1 mg/dL (8.4-10.6); Glucose* 98 mg/dL (60-115); HDL Cholesterol* 46 mg/dL (>=50); LDL Cholesterol Calculated 113 mg/dL (<100); Triglycerides* 140 mg/dL (40-149)
[2022-05-29 16:39] LABS: Vitamin D 25 Hydroxy* 65 ng/mL (30-80)
[2022-05-29 16:55] LABS: TSH With Reflex to FT4* < 0.015 uIU/mL (0.270-4.200)
[2022-05-29 17:41] LABS: Free T4 Free Thyroxine* 1.36 ng/dL (0.70-1.85)
== END 2022-05-29 11:39 | disposition home or self-care (01) ==
PROVIDERS: PCP Family Medicine; Visit Provider Family Medicine
DX: Z01.818 Encounter for other preprocedural examination (principal); R03.0 Elevated blood-pressure reading, without diagnosis of hypertension; R17 Unspecified jaundice; M81.0 Age-related osteoporosis without current pathological fracture; E03.9 Hypothyroidism, unspecified; Z13.6 Encounter for screening for cardiovascular disorders
CPT/HCPCS: 80053; 80061; 82306; 84439; 84443

== ENCOUNTER 2022-06-21 07:24 | Day surgery (SDC) | payer MEDICARE, SELFPAY ==
[2022-06-21] MEDS: LACTATED RINGERS 1000 ML 1,000 ML 35 ML IV (07:30)
[2022-06-21 07:41] VITALS: BP 118/71; PULSE 72; RESP 14; TEMP 36.8; O2SAT 100
[2022-06-21 07:46] VITALS: BMI 23.2
[2022-06-21] MEDS: LIDOCAINE 1% MDV 20 ML INJECTION (09:06)
[2022-06-21] MEDS: SILVER NITRATE APPLICATOR 1 EACH STICK..EA. TOPICAL (09:07)
[2022-06-21 09:18] VITALS: BP 120/82; PULSE 63; RESP 16; TEMP 36.3; O2SAT 99
--- NOTE | 2022-06-21 09:22 | W.ANESCHARGE ---
Anesthesia Charges Start Date/Time Anesthesia Start Date: 06/21/22 Anesthesia Start Time: 08:35 Stop Date/Time Anesthesia Stop Date: 06/21/22 Anesthesia Stop Time: 09:19 Summary Emergency: No
--- NOTE | 2022-06-21 09:29 | P.GYNPRC_ITS ---
Procedure Note Date Seen: 06/21/22 Procedure Details: PREOPERATIVE DIAGNOSIS: History of complex endometrial hyperplasia without atypia Thickened endometrium on ultrasound POSTOPERATIVE DIAGNOSIS: History of complex endometrial hyperplasia without atypia PROCEDURE: Hysteroscopy, dilation and curettage SURGEON: Jannie Estrella MD ANESTHESIA: Monitored anesthesia care, paracervical block URINE OUTPUT: Approximately 15 mL EBL: Less than 5 mL SALINE DEFICIT: 135 mL FINDINGS: 1. Advanced uterovaginal prolapse noted, with cervix extending beyond the vaginal introitus. Uterus was palpably of normal size, and there were no palpable adnexal masses. 2. Upon hysteroscopy survey of the endocervix was normal. Survey of the endometrial cavity revealed a uniform, thin appearance to the cavity. Bilateral tubal ostia were normal in appearance. COMPLICATIONS: None PROCEDURE IN DETAIL: Patient was taken to the operating room with IV running. She was positioned in dorsal lithotomy position with her legs fully supported in Yellofin stirrups. Monitored anesthesia care was administered. She was prepped and draped in the usual sterile fashion. Exam under anesthesia was performed for the above-noted findings. Cervix visualized and grasped along the anterior lip with a single-tooth jacinda culum. Cervix was serially dilated to accommodate the TRUCLEAR hysteroscope. This was assembled with saline inflow and outflow in place. The line was flushed of bubbles. The hysteroscope was advanced through the cervix into the endometrial cavity for the above noted findings. The tissue morcellator was then inserted through the operating channel. Window lock was performed. Under direct visualization, the endometrial cavity was circumferentially curetted with the tissue morcellator. The hysteroscope and morcellator were then removed from the uterus. Tenaculum was removed from the anterior lip of cervix. Hemostasis achieved with silver nitrate. Patient tolerated procedure well. She was taken to recovery area in stable condition.
--- NOTE | 2022-06-21 09:36 | W.ANESCHARGE ---
Anesthesia Charges Start Date/Time Anesthesia Start Date: 06/21/22 Anesthesia Start Time: 08:35 Stop Date/Time Anesthesia Stop Date: 06/21/22 Anesthesia Stop Time: 09:19 Summary Emergency: No
[2022-06-21 10:13] VITALS: BP 118/68; PULSE 64; RESP 16; TEMP 36.3; O2SAT 100
== END 2022-06-21 10:14 | disposition home or self-care (01) ==
PROVIDERS: PCP Family Medicine; Visit Provider Obstetrics & Gynecology
PROC: 0UDB8ZZ Extraction of Endometrium, Via Natural or Artificial Opening Endoscopic (ICD-10-PCS; CPT 58558; principal; 2022-06-21 08:30)
DX: N85.01 Benign endometrial hyperplasia (principal)
CPT/HCPCS: 58558; 00952; 36415; 86850; 86900; 86901; 88305; A9270; J2250; J2704; J3010; J7120

== ENCOUNTER 2022-07-10 13:13 | Outpatient (RCR) | payer MEDICARE, SELFPAY ==
--- NOTE | 2022-05-31 12:41 | ONC.NURNOTE ---
Patient called and was requesting results from ultrasound that was done in March. Impression was read to patient. She questioned whether this is something that can be removed when she has her D/C the end of June. Patient referred to Dr. Estrella's office to see if this is something that can be done by her, or if general surgery can and would remove it.
--- NOTE | 2022-09-25 13:14 | ONC.NURNOTE ---
Called pt to review changes in [facility] program and Dr. Membreno's transition to [facility], returning Spring 2022. Pt to schedule Dexa 09/2022 and RTC 11/19/[address] [facility].
== END 2022-10-07 23:59 | disposition home or self-care (01) ==
LOC: CCIC 13:13
PROVIDERS: PCP Family Medicine; Visit Provider Internal Medicine Hematology & Oncology
DX: C50.912 Malignant neoplasm of unspecified site of left female breast (principal); Z17.0 Estrogen receptor positive status [ER+]; Z79.811 Long term (current) use of aromatase inhibitors; M81.0 Age-related osteoporosis without current pathological fracture
CPT/HCPCS: 99212; 99214

== ENCOUNTER 2022-10-03 14:46 | Outpatient (CLI) | payer MEDICARE, SELFPAY ==
--- NOTE | 2022-10-03 15:00 | CRLHL7_ITS ---
"For Patients: As a result of the Century Cures Act, medical imaging exams and procedure reports are released immediately into your electronic medical record. You may view this report before your referring provider. If you have questions, please contact your health care provider. DXA BONE MINERAL DENSITY STUDY Current height (in): 61.0. Weight (lb): 123.0. Menopause age: 51. Ethnicity: White. 1. Have you had a previous hip or vertebral fracture? No. 2. Have you had any fractures during your adult life which did not result from significant trauma (e.g., auto accident)? No. 3. Did either of your parents have a hip fracture? No. 4. Do you smoke? No. 5. Have you ever taken Glucocorticoids? No. 6. Do you have rheumatoid arthritis? No. 7. Do you have secondary osteoporosis? No. 8. Do you drink 3 or more alcoholic drinks per day? No. 9. Are you being treated for osteoporosis? Yes. 10. Have you ever taken any of the following medications: Actonel, Evista, Fosamax, Miacalcin, Reclast, Boniva, Forteo, HRT (i.e. estrogen/hormone therapy), Protelos, Prolia, Vitamin D, Calcium, other ??? please specify. ANSWER: Yes, vitamin D, calcium. 11. Do you have any of the following medical conditions: Anorexia or bulimia, asthma or emphysema, end stage renal disease, hyperparathyroidism, any seizure disorders, cancer, inflammatory bowel diseases, hysterectomy, other ??? please specify. ANSWER: Yes, cancer. 12. What was your maximum height (inches)? 62. 13. Do you perform weight bearing exercise regularly? Yes. 14. Do you regularly consume dairy products? Yes. 15. Do you drink caffeinated beverages? No. 16. At what age did your period start? 13. 17. Are you premenopausal? No. 18. How many full term pregnancies have you had? 2. 19. Have you ever missed your period for more than 6 months in a row (not including or menopause)? No. TECHNIQUE: Bone mineral density study was performed using the [employer]. FINDINGS: The results of the study expressed as bone mineral density (BMD) are as follows: Lumbar spine L1 to L4: BMD: 0.937 g/cm2. T-score: -1.0. Z-score: 1.1. Neck Left: BMD: 0.683 g/cm2. T-score: -1.5. Z-score: 0.3. Right: BMD: 0.529 g/cm2. T-score: -2.9. Z-score: -1.1. Total Left: BMD: 0.896 g/cm2. T-score: -0.4. Z-score: 1.1. Right: BMD: 0.729 g/cm2. T-score: -1.7. Z-score: -0.3. IMPRESSION: Osteoporosis. *Comparison exams done prior to 01/2020 were performed on different unit, [employer]. COMPARISON: Compared with scan of 10/04/2021, the bone mineral density has decreased by 1.6 percent at the spine and decreased by 0.1 percent at the hip. Jagjit Leon M.D. Diagnostic Radiologist [email or web address] JAMIE/jenae / be/Dictated by: Jagjit Leon MD @ 10/04/2022 12:45:00 PM (Electronically Signed)"
== END 2022-10-03 14:47 | disposition home or self-care (01) ==
LOC: RAD 14:46
PROVIDERS: PCP Family Medicine; Visit Provider Internal Medicine Hematology & Oncology
DX: M81.0 Age-related osteoporosis without current pathological fracture (principal)
CPT/HCPCS: 77080

== ENCOUNTER 2022-11-12 14:21 | Outpatient (RCR) | payer MEDICARE, SELFPAY ==
--- NOTE | 2022-11-14 12:05 | URNOTE ---
REceived request for [employer] ([id number]). Pt has medicare. Prior auth is not required as services are based on medical necessity and follow medicare guidelines.
--- NOTE | 2023-04-05 08:44 | ONC.NURNOTE ---
Reviewed with pt via phone her normal mammogram results; pt voices understanding, no concerns at this time.
== END 2023-05-11 23:59 | disposition home or self-care (01) ==
LOC: CCIC 14:21
PROVIDERS: PCP Family Medicine; Visit Provider Internal Medicine Hematology & Oncology
DX: C50.912 Malignant neoplasm of unspecified site of left female breast (principal); Z17.0 Estrogen receptor positive status [ER+]; Z79.811 Long term (current) use of aromatase inhibitors; M81.0 Age-related osteoporosis without current pathological fracture
CPT/HCPCS: 99212; 99214

== ENCOUNTER 2023-04-03 13:46 | Outpatient (CLI) | payer MEDICARE, SELFPAY ==
--- NOTE | 2023-04-03 14:00 | CRLHL7_ITS ---
For Patients: As a result of the Century Cures Act, medical imaging exams and procedure reports are released immediately into your electronic medical record. You may view this report before your referring provider. If you have questions, please contact your health care provider. BILATERAL SCREENING MAMMOGRAM WITH COMPUTER-AIDED DETECTION AND TOMOSYNTHESIS TECHNIQUE: CC and MLO views were obtained. These mammographic images have been obtained using full-field digital technique. These mammographic images were interpreted with the benefit of computer-aided detection. Breast Tomosynthesis was used in this interpretation. COMPARISON FILM: 03/13/22, 03/02/21, 06/13/18. FINDINGS: The breasts are heterogeneously dense, which may obscure small masses IMPRESSION: There is no radiographic evidence for malignancy. ASSESSMENT: BI-RADS Category 1: Negative RECOMMENDATION: Routine screening mammogram in 1 year. A lay language report of this examination will be provided to the patient. Jagjit Leon M.D. Diagnostic Radiologist [email or web address] Transcribed: 1:46 pm DW/Dictated by: Jagjit Leon MD @ 04/04/2023 12:29:00 PM (Electronically Signed)
== END 2023-04-03 13:47 | disposition home or self-care (01) ==
LOC: MAMMO 13:47
PROVIDERS: PCP Family Medicine; Visit Provider Internal Medicine Hematology & Oncology
DX: Z12.31 Encounter for screening mammogram for malignant neoplasm of breast (principal); R92.2 Inconclusive mammogram
CPT/HCPCS: 77063; 77067

== ENCOUNTER 2023-06-24 08:09 | Outpatient (RCR) | payer MEDICARE, SELFPAY ==
--- NOTE | 2023-06-27 16:08 | ONC.NURNOTE ---
Surgical consult faxed to [facility] surgery clinic. Medical Staff Manager spoke to pt stating Shakila francis reviewed ultrasound and would like surgical consult. Pt verbalized understanding of plan of care.
== END 2023-12-21 23:59 | disposition home or self-care (01) ==
LOC: CCIC 08:09
PROVIDERS: PCP Family Medicine; Visit Provider Internal Medicine Hematology & Oncology
DX: C50.912 Malignant neoplasm of unspecified site of left female breast (principal); Z17.0 Estrogen receptor positive status [ER+]; Z79.811 Long term (current) use of aromatase inhibitors; N85.01 Benign endometrial hyperplasia; N95.0 Postmenopausal bleeding; M81.0 Age-related osteoporosis without current pathological fracture
CPT/HCPCS: 99212; 99215

== ENCOUNTER 2023-06-26 10:54 | Outpatient (CLI) | payer MEDICARE, SELFPAY ==
--- NOTE | 2023-06-26 11:15 | CRLHL7_ITS ---
For Patients: As a result of the Cures Act, medical imaging exams and procedure reports are released immediately into your electronic medical record. You may view this report before your referring provider. If you have questions, please contact your health care provider. LEFT BREAST ULTRASOUND CLINICAL HISTORY: Left breast pain. COMPARISON: 04/03/2023 mammogram. TECHNIQUE: Real-time ultrasound imaging of LEFT breast with imaging documentation. FINDINGS: Targeted ultrasound LEFT breast 9 o`clock 7 cm from the nipple performed. In this location there is a circumscribed collection of fluid with mild internal echoes measuring 1.6 x 1.4 x 0.4 cm. Per the patient, this area is unchanged since her surgery. No solid mass. No abnormal vascularity. IMPRESSION: Benign postop changes LEFT breast 9 o`clock 7 cm from the nipple with a 1.6 x 1.4 x 0.4 cm seroma. No suspicious findings. RECOMMENDATIONS: Clinical follow-up. Results and recommendations were discussed with the patient at the time of the exam. BI-RADS: 2. Benign. Dictated by Jagjit Leon MD @ 06/26/2023 12:34:30 PM/jenae be/Dictated by: Jagjit Leon MD @ 06/26/2023 12:34:00 PM (Electronically Signed)
== END 2023-06-26 10:55 | disposition home or self-care (01) ==
PROVIDERS: PCP Family Medicine; Visit Provider Physician Assistant
DX: N64.4 Mastodynia (principal)
CPT/HCPCS: 76642

== ENCOUNTER 2023-07-01 19:05 | Outpatient (CLI) | payer MEDICARE, SELFPAY | END 2023-07-01 19:06 | disposition home or self-care (01) | LOC: NFLDREF 19:06 | PROVIDERS: PCP Family Medicine; Visit Provider Obstetrics & Gynecology | DX: N93.9 Abnormal uterine and vaginal bleeding, unspecified (principal) | CPT/HCPCS: 87086 ==

== ENCOUNTER 2023-07-22 12:54 | Outpatient (CLI) | payer MEDICARE, SELFPAY ==
--- NOTE | 2023-07-22 13:00 | CRLHL7_ITS ---
For Patients: As a result of the Century Cures Act, medical imaging exams and procedure reports are released immediately into your electronic medical record. You may view this report before your referring provider. If you have questions, please contact your health care provider. History: Abnormal bleeding Comparison : Pelvic ultrasound April 25, 2022 Technique : Transabdominal and transvaginal pelvic ultrasound utilizing grayscale and color flow techniques. Findings : Uterus: Measures approximately 8 x 5 x 6 centimeters and is diffusely heterogeneous, with multiple rounded heterogeneous masses containing calcifications. The largest of these masses is within the fundus and measures up to 4.4 centimeters. Endometrium: 3 millimeters in thickness. Ovaries: The left ovary measures 1.9 x 1.5 by 1.5 centimeters and has appropriate color flow. The right ovary was not visualized secondary to small size, atypical location or bowel gas. There are no adnexal cysts or masses. Free fluid: None. IMPRESSION : Multi fibroid uterus Dictated by Darrell Whitaker MD @ 07/24/2023 9:19:14 AM (Electronically Signed)
== END 2023-07-22 12:55 | disposition home or self-care (01) ==
LOC: US 12:55
PROVIDERS: PCP Family Medicine; Visit Provider Obstetrics & Gynecology
DX: N93.9 Abnormal uterine and vaginal bleeding, unspecified (principal); D25.9 Leiomyoma of uterus, unspecified
CPT/HCPCS: 76830; 76856

== ENCOUNTER 2023-09-26 11:03 | Emergency (ER) | payer MEDICARE, SELFPAY ==
[2023-09-26 11:11] VITALS: BP 175/78; PULSE 67; RESP 16; TEMP 36.3; O2SAT 98; BMI 22.7
--- NOTE | 2023-09-26 11:18 | ED.GENADULT ---
HPI - General Adult General Chief complaint: Animal Bite Stated complaint: Cat bite R hand Time Seen by Provider: 09/26/23 11:06 Source: patient Mode of arrival: ambulatory Limitations: no limitations History of Present Illness HPI narrative: 68-year-old female coming in today after a cat bite. Patient was bitten by her fully immunized cat yesterday. Woke up this morning and hand was swollen. Denies any other concerns. Last tetanus was updated in 2004. Related Data Home Medications Medication Instructions Recorded Confirmed ibuprofen 200 mg capsule (Motrin 400 mg PO Q8H PRN 06/24/23 09/26/23 IB) Previous Rx's Medication Instructions Recorded calcium carbonate 600 mg-vitamin 1 tab PO BID #240 tabs 01/28/23 D3 10 mcg (400 unit) tablet anastrozole 1 mg tablet 1 mg PO QDAY #100 tabs 06/19/23 amoxicillin 875 mg-potassium 1 tab PO BID 7 days #14 tabs 09/26/23 clavulanate 125 mg tablet Allergies Allergy/AdvReac Type Severity Reaction Status Date / Time silver AdvReac Intermediate Rash Verified 09/26/23 11:11 Review of Systems Status of ROS: Reports: 6 or more systems reviewed and unremarkable except as noted in History and below [facility] Medical History Seroma of breast ?N64.89 - Other specified disorders of breast (ICD-10) Osteoporosis ?M81.0 - Age-related osteoporosis without current pathological fracture (ICD-10) Malignant neoplasm of left breast (02/2021) ?C50.912 - Malignant neoplasm of unspecified site of left female breast (ICD-10) History of nonmelanoma skin cancer (2005) ?Z85.828 - Personal history of other malignant neoplasm of skin (ICD-10) Elevated blood pressure reading (02/2021) ?R03.0 - Elevated blood-pressure reading, without diagnosis of hypertension (ICD-10) Surgical History S/P radiation therapy (~05/2021) ?Z92.3 - Personal history of irradiation (ICD-10) History of lumpectomy of left breast (04/18/21) ?Z98.890 - Other specified postprocedural states (ICD-10) History of local excision of skin lesion (2005) ?Z98.890 - Other specified postprocedural states (ICD-10) History of excision of epidermal inclusion cyst ?Z98.890 - Other specified postprocedural states (ICD-10) ?Z87.2 - Personal history of diseases of the skin and subcutaneous tissue (ICD-10) History of dilation and curettage (04/06/21) ?Z98.890 - Other specified postprocedural states (ICD-10) Family History Brother Cancer of kidney Father Stroke, Onset Age: 70 Diabetes Prostate cancer Mother Congenital heart defect Aunt Colon cancer Maternal Grandmother Diabetes Paternal Grandmother Alzheimers disease Social History Narrative: Does not drink alcohol Exercises regularly- gardening summer, walking winter in [place] , retired dental assistant professor of business, 2 kids, lives in [place] Non-smoker Smoking Status: Never smoker Do you use any of these nicotine containing products: None Second hand tobacco smoke exposure: Yes () How often do you have a drink containing alcohol: never AUDIT-C Alcohol total score: 0 Non-prescribed substance use: denies use service: No Exam Narrative: Exam Narrative: Well-nourished well-developed patient in no acute distress. Alert and oriented. Answers questions appropriately. Mood and affect are appropriate. Thoughts are goal oriented and rational. No tangential or magical thinking noted. Patient speaks in full sentences without needing to catch her breath. HEENT: Normocephalic atraumatic. Pupils are equally round reactive to light. Extraocular muscles are intact. Conjunctivae are moist without any icterus noted. Moist mucous membranes. Extremities: Patient's right hand is swollen. She has a very small puncture wound in the center of the dorsal surface of the hand. She has erythema on the dorsal surface of the hand that extends just below the knuckles and just distal to the wrist. Const: Vital Signs, click to edit/add: Vital Signs - 24 hr 09/26/23 11:11 Temperature 97.3 F L Pulse Rate [Pulse Oximeter] 67 Respiratory Rate 16 Blood Pressure [Ri ght Upper Arm] 175/78 H Pulse Oximetry 98 Oxygen Delivery Me thod Room Air Course Course ED Course: Tetanus shot updated and patient given IM Rocephin while here today. Vital Signs Vital signs: Initial Vital Signs Temperature 97.3 F L 09/26/23 11:11 Temperature Source Temporal Artery Scan 09/26/23 11:11 Pulse Rate 67 09/26/23 11:11 Respiratory Rate 16 09/26/23 11:11 Blood Pressure 175/78 H 09/26/23 11:11 Blood Pressure Mean 110 H 09/26/23 11:11 Blood Pressure Position Sitting 09/26/23 11:11 Pulse Oximetry 98 09/26/23 11:11 Oxygen Delivery Method Room Air 09/26/23 11:11 Vital Signs Temperature 97.3 F L 09/26/23 11:11 Pulse Rate 67 09/26/23 11:11 Respiratory Rate 16 09/26/23 11:11 Blood Pressure 175/78 H 09/26/23 11:11 Pulse Oximetry 98 09/26/23 11:11 Oxygen Delivery Method Room Air 09/26/23 11:11 Temperature 97.3 F L 09/26/23 11:11 Pulse Rate 67 09/26/23 11:11 Respiratory Rate 16 09/26/23 11:11 Blood Pressure 175/78 H 09/26/23 11:11 Pulse Oximetry 98 09/26/23 11:11 Oxygen Delivery Method Room Air 09/26/23 11:11 Medical Decision Making MDM Narrative Medical decision making narrative: Cat bite with resulting erythema and swelling, probable developing cellulitis. Will treat with Augmentin. Discharge Plan Discharge Clinical Impression: Cellulitis, Cat bite Patient Disposition: Home, Self-Care Condition: Stable Additional Instructions: Take all antibiotics as prescribed. Elevate the hand when possible, this will decrease swelling and help with discomfort. Follow up if the redness continues to spread despite antibiotic treatment. Prescriptions: New amoxicillin-pot clavulanate 875-125 mg tablet 1 tab PO BID 7 Days Qty: 14 0RF No Action ibuprofen [Motrin IB] 200 mg capsule 400 mg PO Q8H PRN calcium carbonate-vitamin D3 600 mg-10 mcg (400 unit) tablet 1 tab PO BID Qty: 240 12RF anastrozole 1 mg tablet 1 mg PO QDAY Qty: 100 3RF Follow Up/Referrals: Magdalena Perez MD [Primary Care Provider] - Stand [facility]
[2023-09-26] MEDS: LIDOCAINE 1% 5 ml (pf) 5 ML VIAL 2.1 ML IM (11:25)
[2023-09-26] MEDS: cefTRIAXone 1 GM VIAL IM (11:25)
--- OUTSIDE RECORDS SUMMARY | 2023-09-26 11:25 | XMS_ITS | Clinical Summary ---
Author Name Unknown Organization [facility] Address [address] [place] [address] Care Team Providers Care Fell Cutter Name Role Phone Yashira Gonzalez APRN, CNP Primary Care Provider Source Comments You are receiving this document as you are listed as the primary care provider,follow-up provider, or the patient has been referred to you for consultation.This is in compliance with the Medicare and[facility] EHR Incentive Program,which states Providers who transition their patient to another setting of careor provider of care or refers their patient to another provider of care shouldprovide summary care record for each transition of care or referral. [facility] Allergies No known active allergies Medications No known medications Immunizations Name Administration Dates Next Due Tdap 04/14/2005 Family History Medical History Relation Name Comments Cancer, Breast Negative Family History Cancer, Ovary Negative Family History Social History Tobacco Use Types Packs/Day Years Used Date Smoking Tobacco: Never Smokeless Tobacco: Never Alcohol Use Standard Drinks/Week Comments No 0 (1 standard drink = 0.6 oz pur e alcohol) PHQ-2 Answer Date Recorded PHQ-2 Score 0 12/20/2018 Sex and Gender Information Value Date Recorded Sex Assigned at Not on file Gender Identity Not on file Sexual Orientation Not on file Last Filed Vital Signs [...] Plan Due 1955 Hep C Screening (Preventive Services) 1955 COVID-19 Vaccine (#1) 1955 Zoster/Shingles (1 of 2) 2003 DTaP/Tdap/Td (2 - Tdap) 04/14/2015 04/14/2005 Dexa 2018 Pneumococcal 65+ Yrs (1 - PCV) 2018 Mammogram 06/13/2019 06/13/2018 Medicare Annual Wellness Visit 06/13/2019 06/13/2018 Influenza (#1) 2023 Cholesterol 06/13/2023 06/13/2018 HepA Aged Out No longer eligi ble based on patient's age to complete this topic HepB Aged Out No longer eligi ble based on patient's age to complete this topic Hib Aged Out No longer eligi ble based on patient's age to complete this topic IPV (Polio) Aged Out No longer eligi ble based on patient's age to complete this topic MCV4 Aged Out No longer eligi ble based on patient's age to complete this topic Care Teams Fell Cutter Relationship Specialty Start Date End Date Yashira Gonzalez, HAND FOLDER, TRAVEL REGISTERED NURSE NICU [address] [place] [address] PCP - General Nurse Practitioner 05/30/18
--- OUTSIDE RECORDS SUMMARY | 2023-09-26 11:25 | XMS_ITS | Clinical Summary ---
Author Name Unknown Organization [facility] :[employer] [facility] [employer] Address [place], [place] [address] Care Team Providers Care Public Health Representative Name Role Phone Blair Zimmer Primary Care Provider Unavail able Encounters Date Type Department Care Team Description 07/02/2023 Lab Requisition [facility] [phone] Jannie Estrella MD from Last 3 Months Social History Tobacco Use Types Packs/Day Years Used Date Smoking Tobacco: Never Assessed Sex and Gender Information Value Date Recorded Sex Assigned at Not on file Gender Identity Not on file Sexual Orientation Not on file Plan of Treatment Health [...] (shingles) series for age 50+ (1 of 2) 2003 DEXA/DXA scan for age 65+ 2018 Pneumococcal series for age 65+ (1 of 1 - PCV) 2018 COVID-19 vaccine series (2022- season) 2023 01/10/2021, 12/20/2020 Influenza for age 65+ 04/26/2023 Procedures Procedure Name Priority Date/Time Associated Diagnosis Comments LAB TRACKING EVENT Routine 07/01/2023 7: 00 PM TELEPHOTO INSTALLER PATH TISSUE EXAM Routine 07/01/2023 7:00 PM TELEPHOTO INSTALLER from Last 3 Months Results * LAB TRACKING EVENT (07/01/2023 7:00 PM TELEPHOTO INSTALLER) Other (Other) Client Collect / Unknown 07/01/2023 7:00 PM TELEPHOTO INSTALLER 07/02/2023 4:17 PM TELEPHOTO INSTALLER Jannie Estrella MD LAB BILL ONLY [facility] [address] [place] [address], * PATH TISSUE EXAM (07/01/2023 7:00 PM TELEPHOTO INSTALLER) Case Report Pathology Report ?Case: [id number] ? Authorizing Provider: ??Jannie Estrella MD ?? Collected: ? 07/01/2023 1900 ? Ordering Location: ? [facility] ?Received: ?07/02/2023 1629 ? Pathologist: ? Garo Youssef MD ? Specimen: ?Endometrial Biopsy ? 07/03/2023 4:09 PM TELEPHOTO INSTALLER [facility] Final Diagnosis A) ENDOMETRIUM, BIOPSY: 1. Very scant atrophic endometrium 2. Negative for hyperplasia, atypia, and malignancy in this sample 07/03/2023 4:09 PM TELEPHOTO INSTALLER [facility] Comment A) The specimen is very scant. However, atrophic endometrium typically yields a scant specimen. If the clinical impression does not correlate with the histologic finding of endometrial atrophy, further endometrial tissue sampling is recommended as clinically indicated. 07/03/2023 4:09 PM TELEPHOTO INSTALLER [facility] [employer] [facility] Clinical Information Abnormal uterine bleeding 07/03/2023 4:09 PM TELEPHOTO INSTALLER [facility] Gross Description A) Received in formalin, labeled with the patient's name and date of , is a scant aggregate of possible elena-white flecks measuring 0.1 x 0.1 x 0.1 cm. ??No discrete tissue is identified. The specimen is filtered and entirely submitted in one cassette. Note: Specimen may not survive histologic processing. TLF 07/02/2023 ? 07/03/2023 4:09 PM TELEPHOTO INSTALLER [facility] Microscopic Description The final diagnosis is based on microscopic examination of appropriate sections of all specimens. 07/03/2023 4:09 PM TELEPHOTO INSTALLER [facility] Additional Information Interpreted at [facility] [employer] [facility] - [address] [facility] [address], [place] [address] 07/03/2023 4:09 PM TELEPHOTO INSTALLER [facility] Other (Endometrial Biopsy) 07/01/2023 7:00 PM TELEPHOTO INSTALLER 07/02/2023 4:29 PM TELEPHOTO INSTALLER Jannie Estrella MD PATHOLOGY/CYTOLOG Y [facility] [address] [place] [address], from Last 3 Months Care Teams Public Health Representative Relationship Specialty Start Date End Date Blair Zimmer PCP - General 03/17/21
[2023-09-26] MEDS: TETANUS/DIPHTH/PERTUSSIS 0.5 ML SYRINGE IM (11:30)
== END 2023-09-26 11:37 | disposition home or self-care (01) ==
PROVIDERS: Emergency Provider Family Medicine; PCP Family Medicine
DX: L03.113 Cellulitis of right upper limb (principal); W55.01XA Bitten by cat, initial encounter; Z23 Encounter for immunization
CPT/HCPCS: 90471; 90715; 96372; 99283; J0696

== ENCOUNTER 2023-11-08 14:59 | Outpatient (CLI) | payer MEDICARE, SELFPAY | END 2023-11-08 15:00 | disposition home or self-care (01) | LOC: NFLDREF 15:00 | PROVIDERS: PCP Family Medicine; Visit Provider Family Medicine | DX: Z01.818 Encounter for other preprocedural examination (principal); N81.4 Uterovaginal prolapse, unspecified | CPT/HCPCS: 80048 ==

== ENCOUNTER 2023-11-28 14:32 | Inpatient (IN) | payer MEDICARE, SELFPAY ==
[2023-11-28] VITALS (17 sets, daily range): BP systolic 124–151; BP diastolic 58–80; PULSE 58–98; RESP 14–18; TEMP 35.9–37.5; O2SAT 95–100; BMI 23.3
[2023-11-28] MEDS: LACTATED RINGERS 1000 ML 1,000 ML 100 ML IV ×2 (05:55→09:27)
--- NOTE | 2023-11-28 06:33 | SUR.PREOP ---
Pt has restricted left arm bright pink band applied
--- NOTE | 2023-11-28 06:46 | SUR.PREOP ---
lab hre to draw blood
[2023-11-28] MEDS: SODIUM CHLORIDE 0.9 % (FLUSH) 10 ML SYRINGE IVF ×2 (06:51→20:17)
[2023-11-28 07:02] LABS: Hemoglobin* 15.8 gm/dL (12.0-16.0)
[2023-11-28 07:18] LABS: Creatinine* 0.7 mg/dL (0.5-1.5); Estimated Glomerular Filt Rate 93 ml/min
[2023-11-28] MEDS: CEFAZOLIN 2 GM INJ IVP (07:30)
[2023-11-28] MEDS: VASOPRESSIN 20 UNIT/ML INJ INJECTION (08:30)
[2023-11-28] MEDS: 0.9 % SODIUM CHLORIDE 50 ml INJECTION (08:30)
[2023-11-28] MEDS: METHYLENE BLUE 1 % 10 ml 100 MG INJECTION (10:35)
--- NOTE | 2023-11-28 10:56 | P.GYNPRC_ITS ---
Procedure Note Date of procedure: 11/28/23 Pre-op diagnosis: Symptomatic stage IV uterine prolapse Post-op diagnosis: same Procedure: Total vaginal hysterectomy with bilateral salpingo-oophorectomy, anterior colporrhaphy, modified Betancourt's culdoplasty, cystoscopy, attempted placement of ureteral stent Anesthesia: GETA Complications: none Surgeon: Jannie Estrella MD Electrocardiographic Technician: Liseth Hernández Estimated blood loss (mL): 10 IV fluids (mL): 1,800 Urine Output (mL): 800 Pathology: specimen obtained, sent to pathology ( uterus, cervix, bilateral tubes and ovaries) Condition: stable Disposition: PACU Findings: 1. Gellhorn pessary was in place. Once removed, advanced uterovaginal prolapse was noted on exam. 2. Multiple uterine fibroids, the largest approximately 4 cm in greatest dimension and fundal in location, with uterus weighing 150 g. Normal appearance to bilateral tubes and ovaries. 3. Upon cystoscopy, the bladder mucosa appeared normal. Left ureteral jet was noted. After placement of the 2nd suspension suture, there was no ureteral jet visualized on the right side. After removal of this stitch, ureteral jet was noted. Procedure Description: Patient was taken to the operating room with IV running. She received cefazolin in preoperative prophylaxis. She was positioned on the operating table in dorsal lithotomy position with candy-cane stirrups. She was prepped and draped in the usual sterile fashion. Demarco catheter was inserted. Exam under anesthesia revealed the above-noted findings. The anterior and posterior lips of the cervix were grasped with thyroid Claudia clamps. The cervicovaginal junction was infiltrated with a total of 20 mL of dilute vasopressin. Cervicovaginal junction was incised with the scalpel circumferentially. The vaginal epithelium was dissected off the uterosacral ligaments with a combination of blunt and sharp dissection bilaterally. The anterior colpotomy was performed sharply and a [place] was placed between the uterus and bladder. Posterior colpotomy was performed sharply and a long weighted speculum was placed in the cul-de-sac. Bilateral uterosacral ligaments were clamped, cut, and suture ligated, and tagged for later identification. The cardinal and remnants of the broad ligament bilaterally were clamped, cut, and suture ligated. The LigaSure Impact device was also used to cauterize and transect portions of the left broad ligament. This freed the uterus from its attachments and it was delivered through the vagina. Attention was 1st turned to the right tube and ovary, which was normal in appearance. The infundibulopelvic ligament was first cauterized with the Impact device, then cross clamped with Dano and the right tube and ovary were amputated and removed from the pelvis. The pedicle was tied with 0 Vicryl and hemostasis was noted. This procedure was repeated on the left side and hemostasis was again noted. The patient was placed in Trendelenburg position. The 2 modified Betancourt's sutures were placed as follows. The 1st was placed approximately 1 cm medial to the left vaginal angle, through the left uterosacral ligament approximately 2.5 cm above the vaginal cuff, pulled through the peritoneum of the cul-de-sac, through the right uterosacral ligament, approximately 2.5 cm above the cuff, and through the vagina about 1 cm from the right vaginal cuff angle. This was labeled #1 and tagged for later identification. Another stitch was placed just medial to the 1st through the vaginal cuff, and just beneath the 1st along the uterosacral ligaments and the peritoneum of the cul-de-sac. This was labelled #2 and tagged for later identification. Attention was turned to the anterior vaginal wall. It was infiltrated with a total of 10 mL of Marcaine and epinephrine. An incision was made from the vaginal cuff proceeding to the urethrovesical junction. The vaginal epithelium was dissected off the fibromuscularis beneath it with a combination of first sharp, with then blunt dissection at the angles. This was done bilaterally. The fibromuscularis was then plicated in the midline with interrupted sutures of 0 Vicryl. The vaginal epithelium was trimmed slightly on the each side, and the vaginal epithelium was closed with a running stitch of 2-0 Vicryl. The first of several cystoscopies was performed, revealing no damage to the bladder mucosa. The patient was given methylene blue for better visualization of ureteral jets in cystoscopies to follow. The cystoscope was removed. Then, the modified Betancourt's sutures were tied down beginning with that labeled #1 first, followed by #2. After tying down each of the sutures, cystoscopy was performed. Urine output was fairly low throughout procedure until this point. Patient was given a bolus of saline. This did allow visualization of bilateral ureteral jets prior to tying down the 2nd suture, though urine was not heavily stained with methylene blue. However, there was a persistent absence of right ureteral jet after tying down the 2nd suspension suture. Attempt was made to pass a ureteral stent using a guidewire through the right ureter, but this was not successful. Thus, the 2nd suspension suture was released. Cystoscopy was then performed, immediately demonstrating a return of the right ureteral jet. Cystoscope was removed and Demarco catheter replaced., Thereafter, the vaginal epithelium of the vaginal cuff was closed in an interrupted fashion with 0 Vicryl in a vertical orientation. Hemostasis was noted. The patient tolerated the procedure well and was taken to recovery area in stable condition.
--- NOTE | 2023-11-28 11:14 | W.ANESCHARGE ---
Anesthesia Charges Start Date/Time Anesthesia Start Date: 11/28/23 Anesthesia Start Time: 07:25 Stop Date/Time Anesthesia Stop Date: 11/28/23 Anesthesia Stop Time: 11:13
[2023-11-28] MEDS: fentaNYL 100 MCG/2 ML inj 50 MCG IVP ×2 (11:34→11:42)
[2023-11-28] MEDS: ONDANSETRON 2 MG/ML inj 4 MG IVP (11:36)
[2023-11-28] MEDS: LACTATED RINGERS 1000 ML 1,000 ML 125 ML IV (13:00)
[2023-11-28] MEDS: KETOROLAC 15 MG/ML inj IVP ×2 (13:28→20:17)
[2023-11-28] MEDS: OXYCODONE 5 MG TABLET PO (13:29)
--- NOTE | 2023-11-28 15:13 | PC.NURSE ---
End of Shift: The patient is doing well post TVH. VSS on RA. Reporting moderate pain @ 5/10 PRN oxycodone and scheduled Toradol was given as well with adequate relief. Romero patent and draining. Call light within reach. Tolerating food/fluids PO with no issues. The patient does report mild burning/urgency with the romero in place. I let her know that this is normal. at bedside. Leanne HANSEN BSN
--- NOTE | 2023-11-28 22:57 | PC.NURSE ---
End of shift [id number]: Pt is A&O and VSS. Pt had low-grade fever this evening, T-max 99.1. She is tolerating PO intake, PIV in right wrist SL at 1800. Pt is not having any nausea but reported a ?giant air bubble? in her throat that caused her to have an emesis after eating dinner. Pt declines nausea after this episode. Ax1 to the chair, she felt a little dizzy ambulating the first time but reports it?s improving. Pt denies having any pain. She is having some vaginal bleeding noted on the chux pad. Demarco catheter patent & draining clear, light green urine. Total output of 1000 mL. Scheduled IV Toradol given per OCT.?
[2023-11-29] MEDS: SODIUM CHLORIDE 0.9 % (FLUSH) 10 ML SYRINGE IVF (01:59)
[2023-11-29] MEDS: KETOROLAC 15 MG/ML inj IVP ×2 (01:59→08:27)
[2023-11-29 02:05] VITALS: BP 119/55; PULSE 71; RESP 16; TEMP 37.3; O2SAT 94
[2023-11-29 05:21] LABS: Hemoglobin* 13.4 gm/dL (12.0-16.0)
[2023-11-29 05:33] LABS: Creatinine* 0.8 mg/dL (0.5-1.5); Estimated Glomerular Filt Rate 79 ml/min
[2023-11-29 07:00] VITALS: BP 130/64; PULSE 71; RESP 14; RESP 16; TEMP 37.6; O2SAT 94
--- NOTE | 2023-11-29 08:02 | PC.NURSE ---
End of shift note: pt pleasant and cooperative with cares. romero in place draining light green urine. VSS on RA; TMAX 99.5. denies pain. L arm restriction with band in place. IV to right wrist SL.
--- NOTE | 2023-11-29 10:31 | PM.GYNDS1 ---
DS: Providers Provider Date Seen: 11/29/23 Date of admission: 11/28/23 14:32 Primary care physician: Magdalena Perez MD Admitting Clinician: Jannie Estrella MD Attending Physician on discharge: Jannie Estrella MD Date of Discharge: 11/29/23 DS: Diagnosis Discharge Diagnosis (1) H/O total vaginal hysterectomy: Status: Acute Problem details: Total vaginal hysterectomy with bilateral salpingo-oophorectomy, modified Betancourt's culdoplasty, anterior colporrhaphy, and cystoscopy on 11/28/2023 (2) Uterine prolapse: Status: Acute Problem details: stage 4 (3) Complex endometrial hyperplasia without atypia: Status: Acute Problem details: On D&C specimen 03/2021. Maintained on Arimidex since that time. BIODIESEL TECHNOLOGY MANAGER-Discharge Summary Hospital Course Hospital Course Narrative: Patient is a 68 year old woman admitted on 11/28/2023 for total vaginal hysterectomy with bilateral salpingo-oophorectomy, modified Betancourt's culdoplasty, anterior colporrhaphy, and cystoscopy. Indication for surgery: Uterine procidentia. Intraoperative findings were notable for uterus with multiple fibroids. Uterine weight was 150 g. Bilateral tubes and ovaries were normal in appearance. Upon cystoscopy, there was absence of right ureteral jet after placement of the 2nd suspension suture, which resolved after this suture was removed. Surgery was otherwise uncomplicated. She had an uncomplicated surgery. Postoperative course has been uneventful. Vitals have been stable. She has remained afebrile. Today, on postoperative day 1, she reports the pain is well controlled. She has not used any narcotic pain medicines. The only pain she has had has been from the catheter. This was removed this morning, and she was able to pass her voiding trial. She has been able to ambulate Without difficulty. She is tolerating regular diet. She is passing flatus. She has scant vaginal bleeding. Time Spent with Patient Time attestation: Total time spent providing and/or coordinating discharge services: BIODIESEL TECHNOLOGY MANAGER - Exam Physical Exam: Vital signs: Temp Pulse Resp BP Pulse Ox O2 Del Method 99.6 F 71 14 130/64 94 Room Air 11/29/23 07:00 11/29/23 07:00 11/29/23 07:00 11/29/23 07:00 11/29/23 07:00 11/29/23 07:00 Narrative: General: Pleasant, no acute distress Heart: Regular rate and rhythm, no murmur or gallop Lungs: Clear to auscultation bilaterally Abdomen: Soft, nontender, fundus well below umbilicus Lower extremities: No edema or erythema BIODIESEL TECHNOLOGY MANAGER - DS: Data Data Completed and Pending Labs on day of discharge: Labs from last 24 hours 11/29/23 05:10 Hgb 13.4 Creatinine 0.8 Estimated Creat Clear 39.50 Estimated GFR 79 Procedures Procedures: Procedures Operation Date: 11/28/23 07:15 Actual Procedure Side Surgeon p Total Vaginal Hysterectomy, Bilateral Salpingo-Oophorectomy, Modified Betancourt's Culdoplasty, Cystoscopy, Anterior Colporrhaphy, attempted urteteral stent placement Jannie Estrella MD Complications: none Discharge Plan Discharge Disposition: Home, Self-Care Date of Admission: 11/28/23 14:32 Attending Provider on Discharge: Jannie Estrella Primary Care Provider: Magdalena Perez Condition: Stable Anticipated Discharge Date/Time: 11/29/23 10:35 Discharge Medications: New docusate sodium 100 mg Capsule 100 mg PO BID PRN (Reason: Constipation) Qty: 0 0RF oxycodone 5 mg Tablet 5 mg PO Q4H PRN (Reason: Moderate Pain) Qty: 10 0RF Continued ibuprofen [Motrin IB] 200 mg capsule 400 mg PO Q8H PRN calcium carbonate-vitamin D3 600 mg-10 mcg (400 unit) tablet 1 tab PO BID Qty: 240 12RF anastrozole 1 mg tablet 1 mg PO QDAY Qty: 100 3RF Discharge Orders: Discharge Order (Routine); Ordered 11/29/23 Ordered By: Jannie Estrella Patient Education: Vaginal Hysterectomy (DC) Activity Detail: Nothing per vagina for 6 weeks. No lifting greater than 20 lbs for 6 weeks. No [address] while taking narcotic pain medications. Discharge Diet: Regular Follow Up Appointments: Magdalena Perez MD [Primary Care Provider] - Jannie Estrella MD [Staff Physician] - Forms: [employer] Info Instructions
--- NOTE | 2023-11-29 12:08 | PC.NURSE ---
Discharge: Patient was alert and oriented, VSS. Voiding trial done, 300cc in and 400cc out. Patient tolerated regular diet. Patient denies pain, n/v/SOB. Discharge instructions given, patient verbalizes understanding, instructions signed. Belonging sheet signed. Patient discharged today at 1148 to home accompanied by spouse.
--- OUTSIDE RECORDS SUMMARY | 2023-12-03 09:34 | XMS_ITS | Clinical Summary ---
Author Name Unknown Organization [facility] Address [place], [place] [address] Care Team Providers Care Cnc Applications Engineer Name Role Phone Blair Zimmer Primary Care Provider Unavail able Encounters Date Type Department Care Team Description 11/28/2023 Lab Requisition [facility] [phone] Jannie Estrella MD from Last 3 Months [...] 1 - PCV) 2018 COVID-19 vaccine series ( season) 2023 01/10/2021, 12/20/2020 Influenza for age 65+ 04/26/2024 Procedures Procedure Name Priority Date/Time Associated Diagnosis Comments LAB TRACKING EVENT Routine 11/28/2023 12 :00 PM CDT PATH TISSUE EXAM Routine 11/28/2023 8:40 AM CDT from Last 3 Months Results * LAB TRACKING EVENT (11/28/2023 12:00 PM CDT) Other (Other) Client Collect / Unknown 11/28/2023 12:00 PM CDT 11/28/2023 9:33 PM CDT Jannie Estrella MD LAB BILL ONLY [facility] [address] [place] [address], * PATH TISSUE EXAM (11/28/2023 8:40 AM CDT) Case Report Pathology Report ?Case: [id number] ? Authorizing Provider: ??Jannie Estrella MD ?? Collected: ? 11/28/2023 0840 ? Ordering Location: ? [facility] ?Received: ?11/29/2023 0711 ? Pathologist: ? Annie Chavez MD ? Specimen: ?Uterus, Bilateral Fallopian Tubes and Ovaries ? 11:21 AM CDT [facility] Final Diagnosis A) UTERUS WITH CERVIX, OVARIES, ??AND FALLOPIAN TUBES, TOTAL HYSTERECTOMY WITH BILATERAL SALPINGO-OOPHORECTOMY: 1. Cervix: Unremarkable 2. Endometrium: Atrophic 3. Myometrium: Leiomyomas 4. Uterine serosa: Unremarkable 5. Right ovary: Unremarkable 6. Left ovary: Unremarkable 7. Right fallopian tube: Unremarkable 8. Left fallopian tube: Unremarkable 9. Uterine weight: 137 grams 10. Negative for malignancy 4 11:21 AM T [facility] Clinical Information Uterine Procidentia 4 11:21 AM [facility] Gross Description A) Received in formalin, labeled with the patient's name and uterus, bilateral fallopian tubes and ovaries, is a total hysterectomy and bilateral salpingooophorectomy specimen. The uterus is 137 g (trimmed) and measures 10 cm fundus to cervix, 7 cm cornu to cornu and 4.6 cm anterior to posterior. The ectocervix measures 2.8 cm in diameter and displays a 1.2 cm slit-like os. ??The ectocervical and serosal surfaces are smooth and glistening. ?? The uterus is opened revealing a elena-pink, smooth endometrium, 0.1 cm in thickness. No masses are seen. ??The myometrium is elena pink with diffuse trabeculation and is 0.1 cm in thickness. ??There are multiple well-circumscribed intramural/subserosal nodules present, ranging between 0.3-5.0 cm in greatest dimension. ??The nodule cut surfaces are homogeneously elena-white and whorled, focally calcified, and there are no areas of hemorrhage/necrosis identified. The left fimbriated fallopian tube is 3.7 cm in length and 0.5 cm in diameter with a smooth surface and unremarkable patent stellate lumen on cut section. Attached is a 1.7 x 1.3 x 1.0 cm pink-yellow smooth surfaced ovary. ??Cut section reveals homogeneous elena-white grossly unremarkable ovarian parenchyma. The right fimbriated fallopian tube is 3.6 cm in length and 0.6 cm in diameter with a smooth surface and unremarkable patent stellate lumen on cut section. Attached is a 2.3 x 1.5 x 0.8 cm pink-yellow smooth surfaced ovary. ??Cut section reveals homogeneous elena-white grossly unremarkable ovarian parenchyma. Software Support Engineer sections are submitted as follows: 1. ??Anterior cervix 2. ??Posterior cervix 3. ??Anterior endomyometrium with subserosal nodule 4. ??Posterior endomyometrium 5-7. ??Remaining nodules 8. ??Left ovary, submitted entirely 9. ??Left fimbriated fallopian tube, submitted entirely 10-11. ??Right ovary, submitted entirely 12-13. ??Right fimbriated fallopian tube, submitted entirely JAL 11/29/2023 ?? 4 11:21 AM CDT [facility] Microscopic Description The final diagnosis is based on microscopic examination of appropriate sections of all specimens. 4 11:21 AM CDT [facility] Additional Information Interpreted at [facility], Central Laboratory - [address] [place] [address] 4 11:21 AM CDT [facility] Other (Uterus, Bilateral Fallopian Tubes and Ovaries) 11/28/2023 8:40 AM CDT 11/29/2023 7:11 AM CDT Jannie Estrella MD PATHOLOGY/CYTOLOG Y [facility] [address] [place] [address], from Last 3 Months Care Teams Cnc Applications Engineer Relationship Specialty Start Date End Date Blair Zimmer PCP - General 03/17/21
--- OUTSIDE RECORDS SUMMARY | 2023-12-03 09:34 | XMS_ITS | Clinical Summary ---
Author Name Unknown Organization [facility] Address [address] [facility] [place] [address] Care Team Providers Care Welding Technician Name Role Phone Yashira Gonzalez APRN, CNP Primary Care Provider Source Comments You are receiving this document as you are listed as the primary care provider,follow-up provider, or the patient has been referred to you for consultation.This is in compliance with the Medicare and[facility] EHR Incentive Program,which states Providers who transition [...] 1955 Hep C Screening (Preventive Services) 1955 Zoster/Shingles (1 of 2) 2003 DTaP/Tdap/Td (2 - Tdap) 04/14/2015 04/14/2005 Dexa 2018 Pneumococcal 65+ Yrs (1 - PCV) 2018 Mammogram 06/13/2019 06/13/2018 Medicare Annual Wellness Visit 06/13/2019 06/13/2018 COVID-19 Vaccine (2 - 2022-2 4 season) 2023 12/20/2020 Influenza (#1) 2023 Cholesterol 06/13/2023 06/13/2018 HepA [...] on patient's age to complete this topic Procedures Procedure Name Priority Date/Time Associated Diagnosis Comments MM MAMMOGRAM SCREENING BILAT W CAD Routine 06/13/2018 11:17 AM CDT LIPID PANEL & DIRECT LDL (IF NEEDED) Routine 06/13/2018 11:09 AM CDT Lipid screening from Last 3 Months or Most Recently Relevant to Health Maintenance Results * MM Mammogram Screening Bilat W CAD (06/13/2018 11:17 AM CDT) Anatomical Region Laterality Modality Breast Bilateral Mammography Impressions 06/16/2018 3:22 PM CDT : ACR BI-RADS Category 1: Negative RECOMMENDATION: Follow Up Imaging in 12 months - Bilateral The results and recommendations of this examination will be communicated to the patient. Narrative 06/16/2018 3:22 PM CDT MM MAMMOGRAM SCREENING BILAT W CAD performed on 06/13/18 No comparisons were made when reading this study. Baseline. FINDINGS: Bilateral screening mammogram was performed with the assistance of Computer-Aided Detection. The breasts are heterogeneously dense, which may obscure small masses. There is no radiographic evidence of malignancy. ?? Yashira Gonzalez APRN, CNP RAD OTTONIEL * Lipid Panel and Direct LDL(If Needed) (06/13/2018 11:09 AM CDT) Hours Fasting 12 hours [facility] Cholesterol 192 0 - 199 mg/dl [facility] Triglyceride 137 0 - 149 mg/dl [facility] HDL 45 >40 mg/dl [facility] LDL, Calc. 120 0 - 129 mg/dl [facility] Non HDL Chol, Calc 147 0 - 159 mg/dl [facility] 06/13/2018 11:0 9 AM CDT 06/13/2018 11:20 AM CDT Narrative [facility] - 06/13/2018 4:14 PM CDT Performed at [facility], [address] [place] [address] ??[id number] Yashira Gonzalez APRN, CNP LAB_1 [facility] [phone] from Last 3 Months or Most Recently Relevant to Health Maintenance Care Teams Welding Technician Relationship Specialty Start Date End Date Yashira Gonzalez APRN, CNP [address] [place] [address] PCP - General Nurse Practitioner 05/30/18
--- OUTSIDE RECORDS SUMMARY | 2023-12-03 10:17 | XMS_ITS | Clinical Summary ---
Author Name Unknown Organization [facility] Address [place], [place] [address] Care Team Providers Care Count Room Clerk Name Role Phone Blair Zimmer Primary Care Provider Unavail able Encounters Date Type Department Care Team Description 11/28/2023 Lab Requisition [facility] [phone] Jannie Estrella MD from Last 3 Months [...] CDT Jannie Estrella MD LAB BILL ONLY [facility] [address] [place] [address], * PATH TISSUE EXAM (11/28/2023 8:40 AM CDT) Case Report Pathology Report ?Case: [id number] ? Authorizing Provider: ??Jannie Estrella MD ?? Collected: ? 11/28/2023 0840 ? Ordering Location: ? [facility] ?Received: ?11/29/2023 0711 ? Pathologist: ? Annie Chavez MD ? Specimen: ?Uterus, Bilateral Fallopian Tubes and Ovaries ? 11:21 AM CDT [facility] Final Diagnosis A) UTERUS WITH CERVIX, OVARIES, ??AND FALLOPIAN TUBES, TOTAL HYSTERECTOMY WITH BILATERAL SALPINGO-OOPHORECTOMY: 1. Cervix: Unremarkable 2. Endometrium: Atrophic 3. Myometrium: Leiomyomas 4. Uterine serosa: Unremarkable 5. Right ovary: Unremarkable 6. Left ovary: Unremarkable 7. Right fallopian tube: Unremarkable 8. Left fallopian tube: Unremarkable 9. Uterine weight: 137 grams 10. Negative for malignancy 4 11:21 AM T [facility] Clinical Information Uterine Procidentia 4 11:21 AM [facility] Gross Description A) Received in [...] reveals homogeneous elena-white grossly unremarkable ovarian parenchyma. Desktop Support Technician sections are submitted as follows: 1. ??Anterior cervix 2. ??Posterior cervix 3. ??Anterior endomyometrium with subserosal nodule 4. ??Posterior endomyometrium 5-7. ??Remaining nodules 8. ??Left ovary, submitted entirely 9. ??Left fimbriated fallopian tube, submitted entirely 10-11. ??Right ovary, submitted entirely 12-13. ??Right fimbriated fallopian tube, submitted entirely JAL 11/29/2023 ?? 4 11:21 AM CDT [facility] Microscopic Description The final diagnosis is based on microscopic examination of appropriate sections of all specimens. 4 11:21 AM CDT [facility] Additional Information Interpreted at [facility], Central Laboratory - [address] [place] [address] 4 11:21 AM CDT [facility] Other (Uterus, Bilateral Fallopian Tubes and Ovaries) 11/28/2023 8:40 AM CDT 11/29/2023 7:11 AM CDT Jannie Estrella MD PATHOLOGY/CYTOLOG Y [facility] [address] [place] [address], from Last 3 Months Care Teams Count Room Clerk Relationship Specialty Start Date End Date Blair Zimmer PCP - General 03/17/21
--- OUTSIDE RECORDS SUMMARY | 2023-12-03 10:17 | XMS_ITS | Clinical Summary ---
Author Name Unknown Organization [facility] Address [address] [place] [address] Care Team Providers Care Horse Trader Name Role Phone Yashira Gonzalez APRN, CNP Primary Care Provider Source Comments You are receiving this document as you are listed as the primary care provider,follow-up provider, or the patient has been referred to you for consultation.This is in compliance with the Medicare andSum[facility] Healthcaid EHR Incentive Program,which states Providers who transition [...] - 06/13/2018 4:14 PM CDT Performed at [facility], [address] [place] [address] ??[id number] Yashira Gonzalez APRN, CNP LAB_1 [facility] [phone] from Last 3 Months or Most Recently Relevant to Health Maintenance Care Teams Horse Trader Relationship Specialty Start Date End Date Yashira Gonzalez APRN, CNP [address] [place] [address] PCP - General Nurse Practitioner 05/30/18
== END 2023-11-29 11:48 | disposition home or self-care (01) | DRG 743 ==
LOC: MEDSURG 11-29 08:39
PROVIDERS: Admitting Provider Obstetrics & Gynecology; PCP Family Medicine; Visit Provider Obstetrics & Gynecology
PROC: 0TJB8ZZ Inspection of Bladder, Via Natural or Artificial Opening Endoscopic (ICD-10-PCS; CPT 57260; principal; 2023-11-28 07:15)
DX: N81.3 Complete uterovaginal prolapse (principal); D25.9 Leiomyoma of uterus, unspecified
CPT/HCPCS: 00944; 36415; 82565; 85018; 86850; 86900; 86901; 88307; A9270; J0330; J0690; J1100; J1885; J1940; J2405; J2704; J3010; J7120

== ENCOUNTER 2024-01-02 12:47 | Outpatient (CLI) | payer MEDICARE, SELFPAY ==
--- OUTSIDE RECORDS SUMMARY | 2024-01-02 12:49 | XMS_ITS | Clinical Summary ---
Author Name Unknown Organization [facility] Address [place], [place] [address] Care Team Providers Care Slide Developer Name Role Phone Blair Zimmer Primary Care Provider Unavail able Encounters Date Type Department Care Team Description 11/28/2023 Lab Requisition [facility] [phone] Jannie Estrella MD from Last 3 Months [...] CDT Jannie Estrella MD LAB BILL ONLY [facility] [address] [place] [address], * PATH TISSUE EXAM (11/28/2023 8:40 AM CDT) Case Report Pathology Report ?Case: [id number] ? Authorizing Provider: ??Jannie Estrella MD ?? Collected: ? 11/28/2023 0840 ? Ordering Location: ? [facility] ?Received: ?11/29/2023 0711 ? Pathologist: ? Annie Chavez MD ? Specimen: ?Uterus, Bilateral Fallopian Tubes and Ovaries ? 11:21 AM CDT [facility] Final Diagnosis A) UTERUS WITH [...] Clinical Information Uterine Procidentia 4 11:21 AM [facility] Gross Description A) Received [...] reveals homogeneous elena-white grossly unremarkable ovarian parenchyma. Automotive General Sales Manager sections are submitted as follows: 1. ??Anterior cervix 2. ??Posterior cervix 3. ??Anterior endomyometrium with subserosal nodule 4. ??Posterior endomyometrium 5-7. ??Remaining nodules 8. ??Left ovary, submitted entirely 9. ??Left fimbriated fallopian tube, submitted entirely 10-11. ??Right ovary, submitted entirely 12-13. ??Right fimbriated fallopian tube, submitted entirely JAL 11/29/2023 ?? 4 11:21 AM CDT [facility] Microscopic Description The final diagnosis is based on microscopic examination of appropriate sections of all specimens. 4 11:21 AM CDT [facility] Additional Information Interpreted at [facility], Central Laboratory - [address] [place] [address] 4 11:21 AM CDT [facility] Other (Uterus, Bilateral Fallopian Tubes and Ovaries) 11/28/2023 8:40 AM CDT 11/29/2023 7:11 AM CDT Jannie Estrella MD PATHOLOGY[facility]CYTOLOG [facility] [address] [place] [address], from Last 3 Months Care Teams Slide Developer Relationship Specialty Start Date End Date Blair Zimmer PCP - General 03/17/21
--- OUTSIDE RECORDS SUMMARY | 2024-01-02 12:49 | XMS_ITS | Clinical Summary ---
Author Name Unknown Organization [facility] Address [address] [place] [address] Care Team Providers Care Fusion Juncture Grinder Name Role Phone Yashira Gonzalez APRN, CNP Primary Care Provider Source Comments You are receiving this document as you are listed as the primary care provider,follow-up provider, or the patient has been referred to you for consultation.This is in compliance with the Medicare and[facility] Hospitalcaid EHR Incentive Program,which states Providers who [...] (2 - 2022-2 4 season) 2023 12/20/2020 Cholesterol 06/13/2023 06/13/2018 Influenza (Season Ended) 2024 HepA Aged Out No longer eligi ble [...] - 06/13/2018 4:14 PM CDT Performed at [facility], [address] [place] [id number] Yashira Gonzalez APRN, CNP LAB_1 [facility] [phone] from Last 3 Months or Most Recently Relevant to Health Maintenance Care Teams Fusion Juncture Grinder Relationship Specialty Start Date End Date Yashira Gonzalez APRN, CNP [address] [place] [address] PCP - General Nurse Practitioner 05/30/18
--- NOTE | 2024-01-02 13:00 | XR_ITS ---
Patient: OLGA MAC Facility:?[facility] Patient ID:?[id number] Site Patient ID:?[id number]. Site :?[id number] Study:?DEXA-Bone Density-01/02/2024 1:57:20 PM Ordering Physician:GISELE BARRY Final Report: DXA BONE MINERAL DENSITY STUDY Reason for exam: Prophylactic use aromatase inhibitor. Current height (in): 61.0 Weight (lb): 123.0 Menopause age: 51 Ethnicity: White. 1. Have you had a previous hip or vertebral fracture? No. 2. Have you had any fractures during your adult life which did not result from significant trauma (e.g., auto accident)? No. 3. Did either of your parents have a hip fracture? No. 4. Do you smoke? No. 5. Have you ever taken Glucocorticoids? No. 6. Do you have rheumatoid arthritis? No. 7. Do you have secondary osteoporosis? No. 8. Do you drink 3 or more alcoholic drinks per day? No. 9. Are you being treated for osteoporosis? Yes. 10. Have you ever taken any of the following medications: Actonel, Evista, Fosamax, Miacalcin, Reclast, Boniva, Forteo, HRT (i.e. estrogen/hormone therapy), Protelos, Prolia, Vitamin D, Calcium, other ? please specify. ANSWER: Yes, Vitamin D, HRT, Calcium, Anastrozole. 11. Do you have any of the following medical conditions: Anorexia or bulimia, asthma or emphysema, end stage renal disease, hyperparathyroidism, any seizure disorders, cancer, inflammatory bowel diseases, hysterectomy, other ? please specify. ANSWER: Yes, Cancer, Hysterectomy. 12. What was your maximum height (inches)? 62. 13. Do you perform weight bearing exercise regularly? Yes. 14. Do you regularly consume dairy products? Yes. 15. Do you drink caffeinated beverages? No. 16. At what age did your period start? 13. 17. Are you premenopausal? No. 18. How many full term pregnancies have you had? 2. 19. Have you ever missed your period for more than 6 months in a row (not including or menopause)? No. TECHNIQUE: Bone mineral density study was performed using the [employer]. FINDINGS: The results of the study expressed as bone mineral density (BMD) are as follows: Lumbar spine L1 to L4: BMD: 0.896 g/cm2. T-score: -1.4. Z-score: 0.8. Neck Left: BMD: 0.679 g/cm2. T-score: -1.5. Z-score: 0.3. Right: BMD: 0.510 g/cm2. T-score: -3.1. Z-score: -1.2. Total Left: BMD: 0.851 g/cm2. T-score: -0.7. Z-score: 0.8. Right: BMD: 0.700 g/cm2. T-score: -2.0. Z-score: -0.4. IMPRESSION: Osteoporosis. *Comparison exams done prior to 01/2020 were performed on different unit, [employer]. COMPARISON: Compared with scan of 10/03/2022, the bone mineral density has decreased by 4.5 percent at the spine and decreased by 4.5 percent at the hip. Compared with scan of , the bone mineral density has decreased by 5.9 percent at the spine and decreased by 4.6 percent at the hip. Jagjit Leon M.D. Diagnostic Radiologist [email or web address] [email or web address]/[email or web address] D& Transcribed: 9:14 a.m. PT/Dictated by: Jagjit Leon MD @ 01/06/2024 8:30:00 AM Signed by:?Jagjit Leon MD @01/06/2024 12:48:14 PM (Electronic Signature)
== END 2024-01-02 12:48 | disposition home or self-care (01) ==
LOC: RAD 12:48
PROVIDERS: PCP Family Medicine; Visit Provider Physician Assistant
DX: M81.0 Age-related osteoporosis without current pathological fracture (principal); Z79.811 Long term (current) use of aromatase inhibitors
CPT/HCPCS: 77080

== ENCOUNTER 2024-05-04 09:10 | Outpatient (RCR) | payer MEDICARE, SELFPAY | END 2024-06-20 23:59 | disposition home or self-care (01) | LOC: CCIC 09:10 | PROVIDERS: PCP Family Medicine; Visit Provider Physician Assistant | DX: C50.912 Malignant neoplasm of unspecified site of left female breast (principal); Z17.0 Estrogen receptor positive status [ER+]; Z79.810 Long term (current) use of selective estrogen receptor modulators (SERMs); N85.01 Benign endometrial hyperplasia; M81.0 Age-related osteoporosis without current pathological fracture | CPT/HCPCS: 99214; G0463 ==

== ENCOUNTER 2024-05-22 07:26 | Outpatient (CLI) | payer MEDICARE, SELFPAY ==
--- OUTSIDE RECORDS SUMMARY | 2024-05-22 07:28 | XMS_ITS | Clinical Summary ---
Author Organization [facility] Address [place], [place] [address] Care Team Providers Care Lockstitch Hemmer Name Role Phone [facility] Primary Care Pr ovider Social History Tobacco Use Types Packs/Day Years [...] PCV) 2018 COVID-19 vaccine series (2022- season) 2024 01/10/2021, 12/20/2020 Influenza for age 65+ 04/26/2024 Care Teams Lockstitch Hemmer Relationship Specialty Start Date End Date Clinic, [facility] [address] [place], [place] [id number] PCP - General 04/06/24
--- OUTSIDE RECORDS SUMMARY | 2024-05-22 07:28 | XMS_ITS | Clinical Summary ---
Author Organization [facility] Address [address] [place] [address] Care Team Providers Care Respite Coordinator Name Role Phone Yashira Gonzalez APRN, CNP Primary Care Provider Source Comments You are receiving this document as you are listed as the primary care provider,follow-up provider, or the patient has been referred to you for consultation.This is in compliance with the Medicare and[facility] EHR Incentive Program,which states Providers who transition [...] 06/13/2018 Medicare Annual Wellness Visit 06/13/2019 06/13/2018 Cholesterol 06/13/2023 06/13/2018 COVID-19 Vaccine (2 - 2023-2 5 season) 2024 12/20/2020 Influenza (#1) 2024 RSV (1 - 1-dose 75+ series) 2028 HepA Aged Out No longer eligi ble [...] - 06/13/2018 4:14 PM CDT Performed at [facility], [address] [place] [address] ??[id number] Yashira Gonzalez APRN, CNP LAB_1 [facility] [phone] from Last 3 Months or Most Recently Relevant to Health Maintenance Care Teams Respite Coordinator Relationship Specialty Start Date End Date Yashira Gonzalez APRN, CNP [address] [place] [address] PCP - General Nurse Practitioner 05/30/18
--- NOTE | 2024-05-22 07:45 | CRLHL7_ITS ---
For Patients: As a result of the Century Cures Act, medical imaging exams and procedure reports are released immediately into your electronic medical record. You may view this report before your referring provider. If you have questions, please contact your health care provider. BILATERAL SCREENING MAMMOGRAM WITH COMPUTER-AIDED DETECTION AND TOMOSYNTHESIS TECHNIQUE: CC and MLO views were obtained. These mammographic images have been obtained using full-field digital technique. These mammographic images were interpreted with the benefit of computer-aided detection. Breast Tomosynthesis was used in this interpretation. COMPARISON FILM: 04/03/23, 03/13/22, 03/02/21. FINDINGS: There are scattered areas of fibroglandular density. IMPRESSION: There is no radiographic evidence for malignancy. ASSESSMENT: BI-RADS Category 2: Benign RECOMMENDATION: Routine screening mammogram in 1 year. A lay language report of this examination will be provided to the patient. Jagjit Leon M.D. Diagnostic Radiologist [email or web address] SP/Dictated by: Jagjit Leon MD @ 05/25/2024 12:18:00 PM (Electronically Signed)
== END 2024-05-22 07:27 | disposition home or self-care (01) ==
LOC: MAMMO 07:27
PROVIDERS: PCP Family Medicine; Visit Provider Physician Assistant
DX: Z12.31 Encounter for screening mammogram for malignant neoplasm of breast (principal)
CPT/HCPCS: 77063; 77067

== ENCOUNTER 2024-11-02 13:56 | Outpatient (RCR) | payer MEDICARE, SELFPAY ==
--- NOTE | 2025-01-15 08:58 | ONC.NURNOTE ---
Pt called to request a refill of her Calcium & D3. She has enough left for the weekend. RN did let her know if she runs out she can get this OTC. Lane would like this script sent to [facility] in [place]. Will alert Shawnee Ortez PA-C.
== END 2025-05-01 23:59 | disposition home or self-care (01) ==
LOC: CCIC 13:56
PROVIDERS: PCP Family Medicine; Visit Provider Physician Assistant
DX: C50.912 Malignant neoplasm of unspecified site of left female breast (principal); Z17.0 Estrogen receptor positive status [ER+]; N85.01 Benign endometrial hyperplasia; Z79.810 Long term (current) use of selective estrogen receptor modulators (SERMs)
CPT/HCPCS: 99214; G0463

== ENCOUNTER 2025-03-12 14:21 | Outpatient (CLI) | payer MEDICARE, SELFPAY | END 2025-03-12 14:22 | disposition home or self-care (01) | PROVIDERS: PCP Family Medicine; Visit Provider Family Medicine | DX: E03.9 Hypothyroidism, unspecified (principal); M81.0 Age-related osteoporosis without current pathological fracture; Z13.6 Encounter for screening for cardiovascular disorders | CPT/HCPCS: 80053; 80061; 82306; 84439; 84443 ==

== ENCOUNTER 2025-05-31 12:47 | Outpatient (CLI) | payer MEDICARE, SELFPAY ==
--- NOTE | 2025-05-31 13:00 | CRLHL7_ITS ---
For Patients: As a result of the Century Cures Act, medical imaging exams and procedure reports are released immediately into your electronic medical record. You may view this report before your referring provider. If you have questions, please contact your health care provider. INDICATION: BILATERAL SCREENING MAMMOGRAM, ASYMPTOMATIC 70 Y/O FEMALE COMPARISON: 05/22/2024, 04/03/2023, 03/13/2022 TECHNIQUE: Digital mammogram in CC and MLO projections including computer-aided detection (CAD) and tomosynthesis. BREAST COMPOSITION: The breasts are heterogeneously dense, which may obscure small masses. FINDINGS: No suspicious findings. ASSESSMENT: BI-RADS 1 Negative RECOMMENDATION: Annual screening mammogram. A lay language report of this examination will be provided to the patient. Dictated by: Jagjit Leon MD @ 06/01/2025 09:44:02 (Electronically Signed)
== END 2025-05-31 12:48 | disposition home or self-care (01) ==
LOC: MAMMO 12:48
PROVIDERS: PCP Family Medicine; Visit Provider Family Medicine
DX: Z12.31 Encounter for screening mammogram for malignant neoplasm of breast (principal); R92.333 Mammographic heterogeneous density, bilateral breasts
CPT/HCPCS: 77063; 77067